=== PATIENT | male | born 1955 | race Caucasian/White ===

== ENCOUNTER 2022-12-21 10:41 | Inpatient (IN) | payer MEDICARE, MEDICAID, SELFPAY ==
[2022-12-21] VITALS (15 sets, daily range): BP systolic 107–157; BP diastolic 57–82; PULSE 70–87; RESP 16–20; TEMP 35.8–37.2; O2SAT 91–97; BMI 33.3; BMI 31.9
--- NOTE | 2022-12-21 | CA_ITS ---
FINAL REPORT TECHNIQUE: Graded compression, spectral analysis and ultrasound images of the venous system of the right upper extremity were obtained. CLINICAL HISTORY: red swollen arm, pt unable to raise or move. Pt unable to get out of room chair and be positioned. Poor hygiene. Pt intolerant to touch COMPARISON: none FINDINGS: The jugular vein, subclavian vein, axillary vein, brachial vein, and cephalic vein system are fully compressible and demonstrate no evidence of thrombosis. Basilic vein not imaged. IMPRESSION: Exam limited due to patient inability to tolerate. No evidence of thrombosis of the venous system of the right upper extremity. Reviewed, Interpreted and Dictated by Tawana Heard MD Transcribed by Kylah Wright Authenticated and [facility]
--- NOTE | 2022-12-21 10:53 | XR_ITS ---
FINAL REPORT CLINICAL HISTORY: pain right humerus-- no fall or injury-- does seem swollen and red down the arm -- also has a back issue with sciatica pain and unable to lay or stand -- had to do xrays portable FINDINGS: RIGHT HUMERUS 2 views of the right humeral were obtained. There is no acute fracture or dislocation. There is a calcification adjacent to the greater tuberosity. There could be calcification in the rotator cuff, calcific tendinitis is not excluded. There does appear to be soft tissue edema in the distal arm, cellulitis is not excluded.. IMPRESSION: No acute bony abnormality. Could be calcification in the rotator cuff, calcific tendinitis not excluded. Reviewed, Interpreted and Dictated by Tawana Heard MD Transcribed by Chela Alford Authenticated and [facility]
--- NOTE | 2022-12-21 11:03 | HMH.EDGENADL ---
Discharge Plan Disposition Patient Disposition: Admitted As Inpatient Condition: Fair Referrals Follow up/Referrals: Provider,MD Emanuel [Primary Care Provider] - See instructions Clinical Impressions Clinical Impression: Cellulitis Instructions Patient Instructions: DI for Skin Abscess Discharge ED Provider: Luis Hernandez General Adult HPI General Chief complaint: Skin/Abscess/Foreign Body Stated complaint: feet swollen, blood sugar high Time Seen by Provider: 12/21/22 10:46 History of Present Illness HPI narrative: Patient presents with a 2-week history of right shoulder and arm redness pain and swelling. He states is Grossly worse and describes the pain as severe and worse with movement. There is been no fever. He is seen previous providers and was referred here for further evaluation. He has not been on antibiotics thus far. He denies trauma to the arm. Related Data Allergies Allergy/AdvReac Type Severity Reaction Status Date / Time buspirone [From BuSpar] Allergy Verified 12/21/22 11:12 [facility] Disclaimer: The information contained in this section may have been updated after the patient was seen, as this information can be updated by other users. Social History Smoking Status: Never smoker alcohol intake: never current occupational status: unemployed Travel in the last 8 weeks: None ROS Obtained: Yes All systems reviewed & no additional complaints except as documented Physical Exam General General appearance: alert and in no apparent distress Head Head exam: atraumatic, normocephalic and normal inspection Eye Eye exam: Present normal appearance, PERRL and EOMI ENT ENT exam: Present normal exam, normal oropharynx, mucous membranes moist, TM's normal bilaterally and normal external ear exam Neck Neck exam: Present normal inspection, full ROM and trachea midline; Absent meningismus or lymphadenopathy Chest Chest inspection: Present normal inspection and symmetric chest wall rise; Absent tenderness Respiratory Respiratory exam: Present normal lung sounds bilaterally; Absent respiratory distress Cardiovascular Cardiovascular exam: Present regular rate and normal rhythm; Absent JVD Abdominal Exam Abdominal exam: Present soft and normal bowel sounds; Absent distention, tenderness or guarding Extremities Exam Extremities exam: Present other (To the right shoulder and medial aspect of the right arm there is erythema. The entire arm has some mild to moderate edema. There is tenderness to the shoulder and medial aspect of the right arm as well. There is no fluctuance or crepitance. There is no drainage.) Back Exam Back exam: Present normal inspection; Absent tenderness Neurological Exam Neurological exam: Present alert and oriented X3 Psychiatric Psychiatric exam: Present normal affect and normal mood Skin Skin exam: Present warm, dry, intact and normal color Lymphatic Lymphatic Findings: no adenopathy Medical Decision Making Danish Inquiry Pt receiving controlled substance: Yes Danish was queried for this patient: No Risks and benefits of using a controlled substance: were not discussed with pt by me Vital Signs: 12/21/22 10:43 12/21/22 11:30 12/21/22 12:14 Temperature 97.7 F Temperature Source Oral Pulse Rate 77 78 Pulse Rate [Left Radial] 81 Respiratory Rate 20 Blood Pressure 127/67 138/80 Blood Pressure [Right Arm] 151/74 H Blood Pressure Mean 93 99 Blood Pressure Mean [Right Arm] 99 Blood Pressure Source [Right Arm] Automatic Cuff Blood Pressure Position [Right Arm] Sitting 02 Sat by Pulse Oximetry 96 95 93 L Oxygen Delivery Method Room Air 12/21/22 12:15 12/21/22 12:30 12/21/22 13:00 Temperature Temperature Source Pulse Rate 78 82 79 Pulse Rate [Left Radial] Respiratory Rate Blood Pressure 135/69 107/58 L Blood Pressure [Right Arm] Blood Pressure Mean 90 74 Blood Pressu
[2022-12-21 11:25] LABS: Basophils # 0.1 K/mm3 (0-0.2); Basophils % 0.5 % (0.1-2.0); Eosinophils # 0.2 K/mm3 (0.0-0.4); Hematocrit 47.2 % (42.0-52.0); Hemoglobin 15.7 g/dL (14.1-18.0); Lymphocytes % 4.7 % (10-50); Mean Corpuscular HGB Conc 33.1 g/dL (31.8-35.4); Mean Corpuscular Hemoglobin 28.9 pg (27.0-31.2); Mean Corpuscular Volume 87.2 fl (80-94); Mean Platelet Volume 11.3 fl (7.4-10.4); Monocytes # 0.6 K/mm3 (0.1-1.0); Neutrophils # 19.3 K/mm3 (1.8-7.8); Neutrophils % 90.8 % (37.0-80.0); Platelet Count 247 K/mm3 (142-424); Red Blood Count 5.42 M/mm3 (4.60-6.20); Red Cell Distribution Width 13.4 % (11.5-17.5); White Blood Count 21.2 K/mm3 (4.8-10.8)
[2022-12-21 11:27] LABS: MANUAL DIFFERENTIAL MANUAL DIFFERENTIAL (MANUAL DIFF)
[2022-12-21 11:29] LABS: Chloride 92 mmol/L (98-107)
[2022-12-21 11:30] LABS: Potassium 5.1 mmoL/L (3.5-5.1); Sodium 127 mmol/L (136-145)
[2022-12-21 11:32] LABS: Alanine Aminotransferase 34 U/L (12-78); Alkaline Phosphatase 174 U/L (38-126); Anion Gap 9.1 mEq/L (5-15); Aspartate Amino Transferase 36 U/L (17-59); Bilirubin,Total 2.8 mg/dl (0.2-1.3); Blood Urea Nitrogen 31 mg/dl (9-20); Carbon Dioxide 31 mmol/L (22.0-30.0); Creatinine Clearance Estimated 101 mL/min (50-200); Estimated Glomerular Filt Rate 67 ml/min (>60); GFR (African American) 81 ML/MIN (>60)
[2022-12-21 11:33] LABS: Albumin Level 3.4 g/dl (3.5-5.0); Albumin/Globulin Ratio 0.9 (1.1-1.8); Calcium 8.5 mg/dl (8.4-10.2); Globulin 3.7 g/dL (1.3-3.2); Glucose 154 mg/dl (74-100); Lactic Acid 1.3 mmol/L (0.7-2.1); Total Protein,Serum 7.1 g/dl (6.3-8.2)
[2022-12-21 11:37] LABS: Lymphocytes % 5 % (10-50); Monocytes % 8 % (2-9); Neutrophils % 87 % (42-76); Platelet Estimate Normal; RBC Morphology Normal; Total Cells Counted 100
--- NOTE | 2022-12-21 13:03 | PC.NURSE ---
patient uncomfortable sitting in bed and requested that he be assisted to sitting in a chair. Patient assisted to chair, no further request at this time
--- NOTE | 2022-12-21 14:39 | PC.NURSE ---
ECHO LAB CALLED
[2022-12-21 14:49] LABS: Coronavirus 19, PCR Not Detected (NotDetected); Influenza A, PCR Not Detected (NotDetected); Influenza B, PCR Not Detected (NotDetected)
--- NOTE | 2022-12-21 15:08 | PC.NURSE ---
PRELIM OF DOPPLER NEGATIVE FOR DVT
--- NOTE | 2022-12-21 15:10 | PC.NURSE ---
CARE MANAGEMENT NOTIFIED OF ADMISSION
--- NOTE | 2022-12-21 15:12 | HMH.PHAINT1 ---
Pharmacy Intervention Comments: Medication reconciliation completed using external fill history
--- NOTE | 2022-12-21 15:12 | PC.NURSE ---
ROOM ASSIGNMENT REQUESTED, ROOM 211. ALL STAFF NOTIFIED
--- NOTE | 2022-12-21 15:59 | EXP.HP ---
History of Present Illness *Admission Date: 12/21/22 *Reason for visit:: Right upper extremity swelling and pain *History of present illness: 67-year-old gentleman with 2-week history of right shoulder and arm redness and pain. States his right shoulder is where the pain began approximately 2 weeks ago. He was at a friend's house in [place] and woke up with pain. Denies any trauma or injury. Pain is gradually progressed and includes swelling of his right arm. Significant edema (3+) in right upper extremity and hand. Pain was bad enough that he went to see since he Ortho last week on the . They told him (per his friends in the room) that he either had an infection or gout. They gave him a steroid shot and sent him home. His symptoms have only gotten worse with pain. He has not slept well due to the pain. Is dozing in and out on exam at this time. Denies any chest pain, shortness of breath, nausea, vomiting, fever or chills. He does complain of being quite fatigued and just wanting to sleep. Friends in the room supplement history and state that he has gotten worse over the past several days and has not wanted to do much, has had swelling in his legs as previously not there, and has become very weak and tired. They brought him to the ER at the recommendation of his PCP. On arrival to the ER, concern for right upper extremity cellulitis or infection. Initiated work-up with CBC and CMP. Patient's BUN is elevated at 31 with normal creatinine 1.1. He additionally has elevated white cell count of 20,000. X-ray of the humerus shows no fracture or injury. Duplex of upper extremity showing no DVT. Medicine consulted for admission and further management. [facility] Disclaimer: The information contained in this section may have been updated after the patient was seen, as this information can be updated by other users. Medical History (Updated 12/21/22 @ 17:31 by Александр Glez MD) Atrial fibrillation Chronic anticoagulation Diabetes Essential hypertension Social History Smoking Status: Never smoker alcohol intake: never current occupational status: unemployed Travel in the last 8 weeks: None Review of Systems Review of Systems Review of systems (narrative): 14 point review of systems performed, pertinent positives and negatives as per HPI Meds Home Medications and Allergies Home Medications Medication Instructions Recorded Confirmed Type apixaban 5 mg tablet (Eliquis) 5 mg PO BID Blood thinner 12/21/22 12/21/22 History atorvastatin 80 mg tablet 80 mg PO DAILY Cholesterol 12/21/22 12/21/22 History clopidogrel 75 mg tablet 75 mg PO DAILY Blood thinner 12/21/22 12/21/22 History duloxetine 30 mg capsule,delayed 60 mg PO DAILY mood 12/21/22 12/21/22 History release empagliflozin 25 mg tablet 25 mg PO DAILY Diabetes 12/21/22 12/21/22 History (Jardiance) fluticasone propionate 50 1 spray intranasal DAILY allergies 12/21/22 12/21/22 History mcg/actuation nasal spray,suspension glipizide 10 mg tablet, extended 10 mg PO DAILY Diabetes 12/21/22 12/21/22 History release 24 hr metformin 1,000 mg tablet 1,000 mg PO BID Diabetes 12/21/22 12/21/22 History metoprolol tartrate 25 mg tablet 25 mg PO DAILY High blood pressure 12/21/22 12/21/22 History pantoprazole 40 mg tablet,delayed 40 mg PO DAILY acid reflux 12/21/22 12/21/22 History release New Prescriptions to Start Prescriptions: Allergies Allergy/AdvReac Type Severity Reaction Status Date / Time buspirone [From BuSpar] Allergy Verified 12/21/22 11:12 Exam Data for Last 24 hours Vital signs and Labs for Last 24 Hours: Temp Pulse Resp BP Pulse Ox 97.7 F 87 20 126/80 96 12/21/22 15:47 12/21/22 15:47 12/21/22 15:47 12/21/22 15:47 12/21/22 15:30 Laboratory Results - last 24 hr 12/21/22 11:05: WBC 21.2 H*, RBC 5.42, Hgb 15.7, Hct 47.2, MCV 87.2, MCH 28.9, MCHC 3
--- NOTE | 2022-12-21 16:09 | PC.NURSE ---
report called to hira tipton
--- NOTE | 2022-12-21 16:20 | PC.NURSE ---
arrived by w/c to floor from ED
[2022-12-21 17:05] LABS: ABG Base Excess 1.9 mmol/L (-2.4-2.3); ABG HCO3 26.1 mmhg (22.0-26.0); ABG Oxygen Saturation 91 % (90-100); ABG PCO2 39.7 mmhg (35.0-45.0); ABG PH 7.44 mmol/L (7.35-7.45); ABG PO2 58.9 mmhg (80-100); ABG TCO2 27.3 mmhg (23-27)
[2022-12-21 17:06] LABS: Allen's Test Acceptable; Oxygen 21 %; Source Right Radial
--- NOTE | 2022-12-21 17:10 | HMH.ITSTN ---
called floor and advised we tried to do shoulder on patient while in ER- he could not lay flat or get in position for scan. Nurse will speak to Dr Glez and call back
[2022-12-21 18:23] LABS: NT Pro Brain Natriuretic Pep. 1020 pg/mL (0-125)
[2022-12-21 18:28] LABS: Troponin I 0.18 ng/ml (0.00-0.034)
[2022-12-21 18:33] LABS: C-Reactive Protein 321.3 mg/L (0-4)
--- NOTE | 2022-12-21 18:38 | PC.NURSE ---
Addendum entered by Linn Morel RN 12/21/22 18:45: diamond ramires, hold lasix for now, admin in a couple of hrs after 500ml bolus. Original Note: pt alert x3. pt came to floor very drowsy. bed alarm on for pt safety. crackles heard t/o angie lungs. rt shoulder and rue reddness in spots, rt arm swollen, hand +3 pitting edema. pt rt arm very tende to touch, pt refuses to lift arm or lay down as pt states pain is unbearable. 2l o2 per nc. pt states he is having pain to the rt arm 10/10 and lt buttocks just from sitting the past 2 weeks as pt has been unable to lay flat or on side to sleep. no skin issues to lt buttocks. cb within reach and personal items. pt knows not to get up without assistance.
--- NOTE | 2022-12-21 19:21 | ECG_ITS ---
APPROVED REPORT Exam: Resting ECG HR:71 bpm ECG Measurements Heart Rate 71 AXES NE 170 P 55 QRSd 152 QRS -79 QT 414 T 0 QTc 437 Conclusion SINUS RHYTHM RIGHT BUNDLE BRANCH BLOCK [120+ ms QRS DURATION, UPRIGHT V1, 40+ ms S IN I/aVL/V4/V5/V6] LEFT ANTERIOR FASCICULAR BLOCK [QRS AXIS <= -45, QR IN I, RS IN II] MODERATE T-WAVE ABNORMALITY, CONSIDER LATERAL ISCHEMIA [-0.1+ mV T-WAVE IN I/aVL/V5/V6] ABNORMAL ECG UNCONFIRMED REPORT Electronically signed by : Gaurang Rojas MD 12/22/2022 20:30:13
[2022-12-21 19:28] LABS: POC Glucose,Bedside 230 (70-110)
[2022-12-21 19:31] LABS: Chloride 94 mmol/L (98-107); Potassium 4.9 mmoL/L (3.5-5.1); Sodium 126 mmol/L (136-145)
[2022-12-21 19:34] LABS: Blood Urea Nitrogen 36 mg/dl (9-20); Creatinine Clearance Estimated 97 mL/min (50-200); Estimated Glomerular Filt Rate 67 ml/min (>60); GFR (African American) 81 ML/MIN (>60)
[2022-12-21 19:35] LABS: Anion Gap 7.9 mEq/L (5-15); Carbon Dioxide 29 mmol/L (22.0-30.0); Glucose 152 mg/dl (74-100); INR 1.42 (0.9-1.1)
[2022-12-21 19:40] LABS: C-Reactive Protein 298.6 mg/L (0-4)
[2022-12-21 19:49] LABS: Troponin I 0.14 ng/ml (0.00-0.034)
[2022-12-21 20:00] LABS: Erythrocyte Sedimentation Rate 26 mm/hr (0-20)
--- NOTE | 2022-12-21 20:13 | EXP.ORTH.CON ---
History of Present Illness *Admission Date: 12/21/22 *History of present illness: 67-year-old gentleman with 2-week history of right shoulder and arm redness and pain. States his right shoulder is where the pain began approximately 2 weeks ago. He was at a friend's house in [place] and woke up with pain. Denies any trauma or injury. Pain is gradually progressed and includes swelling of his right arm. Significant edema (3+) in right upper extremity and hand. Pain was bad enough that he went to see since he Ortho last week on the . They told him (per his friends in the room) that he either had an infection or gout. They gave him a steroid shot and sent him home. His symptoms have only gotten worse with pain. He has not slept well due to the pain. Is dozing in and out on exam at this time. Denies any chest pain, shortness of breath, nausea, vomiting, fever or chills. He does complain of being quite fatigued and just wanting to sleep. Friends in the room supplement history and state that he has gotten worse over the past several days and has not wanted to do much, has had swelling in his legs as previously not there, and has become very weak and tired. They brought him to the ER at the recommendation of his PCP. On arrival to the ER, concern for right upper extremity cellulitis or infection. Initiated work-up with CBC and CMP. Patient's BUN is elevated at 31 with normal creatinine 1.1. He additionally has elevated white cell count of 20,000. X-ray of the humerus shows no fracture or injury. Duplex of upper extremity showing no DVT. Medicine consulted for admission and further management. [facility] Disclaimer: The information contained in this section may have been updated after the patient was seen, as this information can be updated by other users. Medical History (Updated 12/21/22 @ 20:17 by Missael Flynn JR, MD) Atrial fibrillation Chronic anticoagulation Diabetes Essential hypertension Family History (Updated 12/21/22 @ 18:30 by Linn Morel RN) Other No significant family history Social History (Updated 12/21/22 @ 18:30 by Linn Morel RN) Smoking Status: Never smoker alcohol intake: never current occupational status: unemployed Travel in the last 8 weeks: None Meds Home Medications and Allergies Home Medications Medication Instructions Recorded Confirmed Type apixaban 5 mg tablet (Eliquis) 5 mg PO BID Blood thinner 12/21/22 12/21/22 History atorvastatin 80 mg tablet 80 mg PO DAILY Cholesterol 12/21/22 12/21/22 History clopidogrel 75 mg tablet 75 mg PO DAILY Blood thinner 12/21/22 12/21/22 History duloxetine 30 mg capsule,delayed 60 mg PO DAILY mood 12/21/22 12/21/22 History release empagliflozin 25 mg tablet 25 mg PO DAILY Diabetes 12/21/22 12/21/22 History (Jardiance) fluticasone propionate 50 1 spray intranasal DAILY allergies 12/21/22 12/21/22 History mcg/actuation nasal spray,suspension glipizide 10 mg tablet, extended 10 mg PO DAILY Diabetes 12/21/22 12/21/22 History release 24 hr metformin 1,000 mg tablet 1,000 mg PO BID Diabetes 12/21/22 12/21/22 History metoprolol tartrate 25 mg tablet 25 mg PO DAILY High blood pressure 12/21/22 12/21/22 History pantoprazole 40 mg tablet,delayed 40 mg PO DAILY acid reflux 12/21/22 12/21/22 History release New Prescriptions to Start Prescriptions: Allergies Allergy/AdvReac Type Severity Reaction Status Date / Time buspirone [From BuSpar] Allergy Verified 12/21/22 11:12 Ortho Exam (Inpt) Vital signs and Labs for Last 24 Hours: Temp Pulse Resp BP Pulse Ox 96.4 F L 72 16 138/70 95 12/21/22 20:00 12/21/22 20:00 12/21/22 20:00 12/21/22 20:00 12/21/22 20:00 Laboratory Results - last 24 hr 12/21/22 11:05: WBC 21.2 H*, RBC 5.42, Hgb 15.7, Hct 47.2, MCV 87.2, MCH 28.9, MCHC 33.1, RDW 13.4, Plt Count 247, MPV 11.3 H, Neut % (Auto) 90.8 H, Lymph % (Auto) 4.7 L, [place] % (Auto) 3.0, Eos % (Auto
[2022-12-21 20:47] LABS: POC Glucose,Bedside 123 (70-110)
[2022-12-22] VITALS (8 sets, daily range): BP systolic 123–186; BP diastolic 63–80; PULSE 70–97; RESP 16–20; TEMP 36.4–36.9; O2SAT 96–99; BMI 31.8; BMI 31.6
[2022-12-22 05:28] LABS: POC Glucose,Bedside 98 (70-110)
--- NOTE | 2022-12-22 06:27 | PC.NURSE ---
NO ACUTE CHANGES SINCE PREVIOUS ASSESSMENT. PT HAS NOT SLEPT MUCH THIS SHIFT. HAS C/O PAIN IN HIS RIGHT SHOULDER X1 THIS SHIFT. C/O NAUSEA X1 THIS SHIFT. MEDICATED PER DEC. REMAINS ON 2L AND IS TOLERATING WELL. PT HAS HAD A BUNDLE BRANCH BLOCK ON TELE. VSS. RUE REMAINS SWOLLEN WITH +2 TO +3 EDEMA. C/O PAIN WITH TOUCH.
[2022-12-22 06:42] LABS: Basophils # 0.1 K/mm3 (0-0.2); Basophils % 0.3 % (0.1-2.0); Eosinophils # 0.2 K/mm3 (0.0-0.4); Hemoglobin 15.6 g/dL (14.1-18.0); Lymphocytes % 4.6 % (10-50); Mean Corpuscular HGB Conc 32.5 g/dL (31.8-35.4); Mean Corpuscular Hemoglobin 28.9 pg (27.0-31.2); Mean Corpuscular Volume 89.2 fl (80-94); Mean Platelet Volume 11.3 fl (7.4-10.4); Monocytes # 0.8 K/mm3 (0.1-1.0); Monocytes % 3.9 % (1.7-9.3); Neutrophils # 19.3 K/mm3 (1.8-7.8); Neutrophils % 90.2 % (37.0-80.0); Platelet Count 226 K/mm3 (142-424); Red Blood Count 5.39 M/mm3 (4.60-6.20); Red Cell Distribution Width 13.3 % (11.5-17.5); White Blood Count 21.4 K/mm3 (4.8-10.8)
[2022-12-22 06:48] LABS: MANUAL DIFFERENTIAL MANUAL DIFFERENTIAL (MANUAL DIFF)
[2022-12-22 07:23] LABS: Chloride 96 mmol/L (98-107); Sodium 127 mmol/L (136-145)
[2022-12-22 07:24] LABS: Potassium 5.3 mmoL/L (3.5-5.1)
[2022-12-22 07:26] LABS: Alanine Aminotransferase 23 U/L (12-78); Albumin Level 2.5 g/dl (3.5-5.0); Albumin/Globulin Ratio 0.9 (1.1-1.8); Alkaline Phosphatase 168 U/L (38-126); Anion Gap 13.3 mEq/L (5-15); Aspartate Amino Transferase 45 U/L (17-59); Bilirubin,Total 1.7 mg/dl (0.2-1.3); Blood Urea Nitrogen 31 mg/dl (9-20); Calcium 7.8 mg/dl (8.4-10.2); Carbon Dioxide 23 mmol/L (22.0-30.0); Creatinine Clearance Estimated 107 mL/min (50-200); Estimated Glomerular Filt Rate 84 ml/min (>60); GFR (African American) 102 ML/MIN (>60); Globulin 2.9 g/dL (1.3-3.2); Glucose 116 mg/dl (74-100); Total Protein,Serum 5.4 g/dl (6.3-8.2)
[2022-12-22 07:27] LABS: Lymphocytes % 7 % (10-50); Magnesium 2.8 mg/dl (1.6-2.3); Monocytes % 5 % (2-9); Neutrophils % 88 % (42-76); Platelet Estimate Normal; RBC Morphology Normal; Total Cells Counted 100
[2022-12-22 07:32] LABS: C-Reactive Protein 293.8 mg/L (0-4)
[2022-12-22 07:54] LABS: Erythrocyte Sedimentation Rate 13 mm/hr (0-20)
--- NOTE | 2022-12-22 09:05 | MR_ITS ---
FINAL REPORT TECHNIQUE: Multiplanar MR imaging of the right shoulder was obtained with and without contrast. CLINICAL HISTORY: RIGHT SHOULDER PAIN redness , swelling , extreme pain x 15 days FINDINGS: Bones and joints: There is no fracture or dislocation. There is bone marrow edema of the acromion and AC joint. The AC joint is widened but there is no elevation of the distal clavicle. The remaining bone marrow signal intensity is normal. Rotator cuff: There is a full-thickness tear of the posterior supraspinatus tendon at the footplate. The infraspinatus and subscapularis tendons are intact. Labrum: There is degeneration of the labrum without evidence of a tear. Other: There is a large joint effusion. There is significant edema of the deltoid muscle including portions of the lateral trapezius muscle, lateral pectoralis muscle and to a lesser extent the rotator cuff muscles. There is a peripherally enhancing fluid collection in the subdeltoid space which extends into the soft tissues superior to the AC joint and anteriorly and inferiorly along the lateral pectoralis and axilla. There is enhancement of the joint capsule. The anterior collection extends at least 10 cm in craniocaudal dimension. Posteriorly, it extends 7 cm in craniocaudal dimension concerning for possible abscess. There is extensive soft tissue edema. There are mildly prominent right axillary lymph nodes. IMPRESSION: Significant abnormal signal intensity within the muscles surrounding the right shoulder and along the lateral right chest wall concerning for myositis and cellulitis. Peripherally enhancing collection dissecting through the soft tissues, abscess is a consideration. Edema of the AC joint with widening, septic arthritis is not excluded. Full-thickness tear of the posterior supraspinatus tendon. Reviewed, Interpreted and Dictated by Tawana Heard MD Transcribed by Pearl Faria Authenticated and [facility]
--- NOTE | 2022-12-22 09:27 | XR_ITS ---
FINAL REPORT CLINICAL HISTORY: R/O FB FINDINGS: ORBITS Two views of the orbits was obtained prior to MRI. No foreign body is identified. IMPRESSION: No foreign body identified. Reviewed, Interpreted and Dictated by Tawana Heard MD Transcribed by Lorraine Mendoza Authenticated and [facility]
--- NOTE | 2022-12-22 09:28 | EXP.ORTH.PN ---
Subjective *Date: 12/22/22 *Time: 09:34 Interval history: Patient is a 67-year-old male admitted to the acute inpatient service with a 2-week history of right shoulder and arm erythema, pain. This morning the patient is lying comfortably in bed. He denies any prior trauma, injury, or surgeries to the right shoulder. He states that he was seen by Johanne Avalos on 12/15/2022 and had a local steroid injection at that time. He states that his symptoms have continued to progress. No history of any fevers, but the patient reports subjective feeling of chills. His past medical history is significant for diabetes, hypertension, atrial fibrillation on chronic anticoagulation with Eliquis. His last dose of Eliquis was the morning of 12/21/2022 he denies any other symptoms or concerns at this time. Ortho Exam (Inpt) Vital signs and Labs for Last 24 Hours: Temp Pulse Resp BP Pulse Ox 97.9 F 86 20 161/69 H 99 12/22/22 08:00 12/22/22 08:00 12/22/22 08:00 12/22/22 08:00 12/22/22 08:00 Laboratory Results - last 24 hr 12/21/22 11:05: WBC 21.2 H*, RBC 5.42, Hgb 15.7, Hct 47.2, MCV 87.2, MCH 28.9, MCHC 33.1, RDW 13.4, Plt Count 247, MPV 11.3 H, Neut % (Auto) 90.8 H, Lymph % (Auto) 4.7 L, Leon % (Auto) 3.0, Eos % (Auto) 1.0, Baso % (Auto) 0.5, Neut # (Auto) 19.3 H, Lymph # (Auto) 1.0, Leon # (Auto) 0.6, Eos # (Auto) 0.2, Baso # (Auto) 0.1, Total Counted 100, Neutrophils % (Manual) 87 H, Lymphocytes % (Manual) 5 L, Monocytes % (Manual) 8, Platelet Estimate Normal, RBC Morphology Normal 12/21/22 11:05: Sodium 127 L, Potassium 5.1, Chloride 92 L, Carbon Dioxide 31 H, Anion Gap 9.1, BUN 31 H, Creatinine 1.10, Estimated Creat Clear 101, Estimated GFR 67, Est GFR ( Amer) 81, Glucose 154 H, Calcium 8.5, Total Bilirubin 2.8 H, AST 36, ALT 34, Alkaline Phosphatase 174 H, Total Protein 7.1, Albumin 3.4 L, Globulin 3.7 H, Albumin/Globulin Ratio 0.9 L 12/21/22 11:05: Lactate 1.3 12/21/22 11:05: Hemoglobin A1c 9.0 H 12/21/22 11:05: Uric Acid 7.0 12/21/22 11:05: Troponin I 0.18 H, C-Reactive Protein 321.3 H, NT-Pro-B Natriuret Pep 1020 H 12/21/22 14:40: SARS-CoV-2 (PCR) Not detected, Influenza A Untype (PCR) Not detected, Influenza Type B (PCR) Not detected 12/21/22 16:34: POC Glucose 230 H 12/21/22 16:48: Specimen Source Right radial, O2 % 21, ABG pH 7.44, ABG pCO2 39.7, ABG pO2 58.9 L, ABG HCO3 26.1 H, ABG Total CO2 27.3 H, ABG O2 Saturation 91, ABG Base Excess 1.9, Christian Test Acceptable 12/21/22 18:49: Sodium 126 L, Potassium 4.9, Chloride 94 L, Carbon Dioxide 29, Anion Gap 7.9, BUN 36 H, Creatinine 1.10, Estimated Creat Clear 97, Estimated GFR 67, Est GFR ( Amer) 81, Glucose 152 H, Calcium 8.0 L, Troponin I 0.14 H, C-Reactive Protein 298.6 H 12/21/22 18:49: PT 15.0 H, INR 1.42 H 12/21/22 18:49: ESR 26 H 12/21/22 20:32: POC Glucose 123 H 12/22/22 05:20: POC Glucose 98 12/22/22 06:05: WBC 21.4 H*, RBC 5.39, Hgb 15.6, Hct 48.0, MCV 89.2, MCH 28.9, MCHC 32.5, RDW 13.3, Plt Count 226, MPV 11.3 H, Neut % (Auto) 90.2 H, Lymph % (Auto) 4.6 L, Leon % (Auto) 3.9, Eos % (Auto) 1.0, Baso % (Auto) 0.3, Neut # (Auto) 19.3 H, Lymph # (Auto) 1.0, Leon # (Auto) 0.8, Eos # (Auto) 0.2, Baso # (Auto) 0.1, Total Counted 100, Neutrophils % (Manual) 88 H, Lymphocytes % (Manual) 7 L, Monocytes % (Manual) 5, Platelet Estimate Normal, RBC Morphology Normal, ESR 13 12/22/22 06:05: Sodium 127 L, Potassium 5.3 H, Chloride 96 L, Carbon Dioxide 23, Anion Gap 13.3, BUN 31 H, Creatinine 0.90, Estimated Creat Clear 107, Estimated GFR 84, Est GFR ( Amer) 102 D, Glucose 116 H D, Calcium 7.8 L, Magnesium 2.8 H, Total Bilirubin 1.7 H, AST 45, ALT 23 D, Alkaline Phosphatase 168 H, C-Reactive Protein 293.8 H, Total Protein 5.4 L, Albumin 2.5 L D, Globulin 2.9, Albumin/Globulin Ratio 0.9 L I & O for Labs for Last 24 Hours: Intake & Output 12/19/22 12/20/22 12/21/22 12/22/22 23:59 23:59 23:59 23:59 Intake Total 240 / 240 240 / 240 Output Total 1150 / 1150 Balance 240 / 40 -910 / -9
--- NOTE | 2022-12-22 10:06 | EXP.CARD.CON ---
History of Present Illness History of Present Illness Consult date: 12/22/22 Requesting physician: Александр Glez Chief complaint: right shoulder pain History of present illness: This is a 67-year-old white gentleman who presented to the emergency department for complaint of a 2-week history of right shoulder and arm pain and redness. The patient states that approximately 2 weeks ago he had sudden onset of redness in his right shoulder with pain. He states that he was in [place] visiting a friend when he woke up with this pain and redness. He states that it progressively worsened and included swelling in the right upper extremity. His edema is around 3+ in the extremity and hand. He went to [facility] last week and was told he either had an infection or gout. He was treated with a steroid shot and sent home. The patient's symptoms continue to worsen so he was brought to the emergency department. The patient was found to have a right upper extremity cellulitis or infection with an elevated white blood cell count. The patient does have a bacteremia which is positive for staph in the right shoulder. The patient is scheduled to undergo an MRI today per orthopedics. He denies any chest pain or pressure. He denies any shortness of breath. He does also report having generalized edema for the last 2 weeks as well. He states his legs have been significantly edematous but are better today. He denies any nausea, vomiting, diarrhea, PND or orthopnea. He denies having any fever or chills currently as well. He does have a history of coronary artery disease, hypertension and hyperlipidemia. The patient follows with Dr. Owen in [place] for cardiology. [facility] Disclaimer: The information contained in this section may have been updated after the patient was seen, as this information can be updated by other users. Medical History (Updated 12/22/22 @ 10:14 by Kami Hogue APRN) Atrial fibrillation Chronic anticoagulation Coronary artery disease Diabetes Edema Essential hypertension Hyperlipidemia Surgical History (Updated 12/22/22 @ 10:09 by Kami Hogue APRN) Stented coronary artery Family History (Updated 12/21/22 @ 18:30 by Linn Morel RN) Other No significant family history Social History (Updated 12/21/22 @ 18:30 by Linn Morel RN) Smoking Status: Never smoker alcohol intake: never current occupational status: unemployed Travel in the last 8 weeks: None Review of Systems Review of Systems Review of systems:: pertinent systems reviewed and negative unless documented below Constitutional Constitutional: Reports system reviewed and no additional complaints, except as documented Eyes Eyes: Reports system reviewed and no additional complaints, except as documented ENT Ears, Nose, Mouth, and Throat: Reports system reviewed and no additional complaints, except as documented *Cardiovascular Cardiovascular: Reports system reviewed and no additional complaints, except as documented, Denies chest pain, Denies dyspnea and Reports leg edema *Respiratory Respiratory: Reports system reviewed and no additional complaints, except as documented and Denies dyspnea *Gastrointestinal Gastrointestinal: Reports system reviewed and no additional complaints, except as documented *Genitourinary Genitourinary: Reports system reviewed and no additional complaints, except as documented *Musculoskeletal Musculoskeletal: Reports system reviewed and no additional complaints, except as documented, Reports arthralgias (Right shoulder joint pain), Reports joint swelling, Reports limited range of motion and Reports stiffness Comments: Pain, redness and swelling to the right shoulder and arm Integumentary/Breasts Skin/Breast: Reports system reviewed and no additional complaints, except as documented *Neurologic Neurologic: Reports system reviewed and no additional complaints, except as documented Psychiatric Psychiatric: Reports sys
--- NOTE | 2022-12-22 10:34 | EXP.PHA.CONS ---
Pharmacy Consult Date: 12/22/22 Time: 10:34 Referring provider: DR. MALCOLM Reason for Consult:: VANCOMYCIN DOSING Allergies Allergy/AdvReac Type Severity Reaction Status Date / Time buspirone [From BuSpar] Allergy Verified 12/21/22 11:12 Home Medications Medication Instructions Recorded Confirmed Type apixaban 5 mg tablet (Eliquis) 5 mg PO BID Blood thinner/atrial 12/21/22 12/21/22 History fib atorvastatin 80 mg tablet 80 mg PO DAILY Cholesterol 12/21/22 12/21/22 History clopidogrel 75 mg tablet 75 mg PO DAILY platelet inhibitor 12/21/22 12/21/22 History duloxetine 30 mg capsule,delayed 60 mg PO DAILY Depression 12/21/22 12/21/22 History release empagliflozin 25 mg tablet 25 mg PO DAILY Diabetes 12/21/22 12/21/22 History (Jardiance) fluticasone propionate 50 1 spray intranasal DAILY allergies 12/21/22 12/21/22 History mcg/actuation nasal spray,suspension glipizide 10 mg tablet, extended 10 mg PO DAILY Diabetes 12/21/22 12/21/22 History release 24 hr metformin 1,000 mg tablet 1,000 mg PO BID Diabetes 12/21/22 12/21/22 History metoprolol tartrate 25 mg tablet 25 mg PO BID High blood pressure 12/21/22 12/22/22 History pantoprazole 40 mg tablet,delayed 40 mg PO DAILY acid reflux 12/21/22 12/21/22 History release New Prescriptions to Start Prescriptions: Height: 1.83 m Weight: 106 kg Laboratory Results:: Laboratory Results - last 24 hr 12/21/22 11:05: WBC 21.2 H*, RBC 5.42, Hgb 15.7, Hct 47.2, MCV 87.2, MCH 28.9, MCHC 33.1, RDW 13.4, Plt Count 247, MPV 11.3 H, Neut % (Auto) 90.8 H, Lymph % (Auto) 4.7 L, [place] % (Auto) 3.0, Eos % (Auto) 1.0, Baso % (Auto) 0.5, Neut # (Auto) 19.3 H, Lymph # (Auto) 1.0, [place] # (Auto) 0.6, Eos # (Auto) 0.2, Baso # (Auto) 0.1, Total Counted 100, Neutrophils % (Manual) 87 H, Lymphocytes % (Manual) 5 L, Monocytes % (Manual) 8, Platelet Estimate Normal, RBC Morphology Normal 12/21/22 11:05: Sodium 127 L, Potassium 5.1, Chloride 92 L, Carbon Dioxide 31 H, Anion Gap 9.1, BUN 31 H, Creatinine 1.10, Estimated Creat Clear 101, Estimated GFR 67, Est GFR ( Amer) 81, Glucose 154 H, Calcium 8.5, Total Bilirubin 2.8 H, AST 36, ALT 34, Alkaline Phosphatase 174 H, Total Protein 7.1, Albumin 3.4 L, Globulin 3.7 H, Albumin/Globulin Ratio 0.9 L 12/21/22 11:05: Lactate 1.3 12/21/22 11:05: Hemoglobin A1c 9.0 H 12/21/22 11:05: Uric Acid 7.0 12/21/22 11:05: Troponin I 0.18 H, C-Reactive Protein 321.3 H, NT-Pro-B Natriuret Pep 1020 H 12/21/22 14:40: SARS-CoV-2 (PCR) Not detected, Influenza A Untype (PCR) Not detected, Influenza Type B (PCR) Not detected 12/21/22 16:34: POC Glucose 230 H 12/21/22 16:48: Specimen Source Right radial, O2 % 21, ABG pH 7.44, ABG pCO2 39.7, ABG pO2 58.9 L, ABG HCO3 26.1 H, ABG Total CO2 27.3 H, ABG O2 Saturation 91, ABG Base Excess 1.9, Christian Test Acceptable 12/21/22 18:49: Sodium 126 L, Potassium 4.9, Chloride 94 L, Carbon Dioxide 29, Anion Gap 7.9, BUN 36 H, Creatinine 1.10, Estimated Creat Clear 97, Estimated GFR 67, Est GFR ( Amer) 81, Glucose 152 H, Calcium 8.0 L, Troponin I 0.14 H, C-Reactive Protein 298.6 H 12/21/22 18:49: PT 15.0 H, INR 1.42 H 12/21/22 18:49: ESR 26 H 12/21/22 20:32: POC Glucose 123 H 12/22/22 05:20: POC Glucose 98 12/22/22 06:05: WBC 21.4 H*, RBC 5.39, Hgb 15.6, Hct 48.0, MCV 89.2, MCH 28.9, MCHC 32.5, RDW 13.3, Plt Count 226, MPV 11.3 H, Neut % (Auto) 90.2 H, Lymph % (Auto) 4.6 L, [place] % (Auto) 3.9, Eos % (Auto) 1.0, Baso % (Auto) 0.3, Neut # (Auto) 19.3 H, Lymph # (Auto) 1.0, [place] # (Auto) 0.8, Eos # (Auto) 0.2, Baso # (Auto) 0.1, Total Counted 100, Neutrophils % (Manual) 88 H, Lymphocytes % (Manual) 7 L, Monocytes % (Manual) 5, Platelet Estimate Normal, RBC Morphology Normal, ESR 13 12/22/22 06:05: Sodium 127 L, Potassium 5.3 H, Chloride 96 L, Carbon Dioxide 23, Anion Gap 13.3, BUN 31 H, Creatinine 0.90, Estimated Creat Clear 107, Estimated GFR 84, Est GFR ( Amer) 102 D, Glucose 116 H D, Calcium 7.8 L, Magnesium 2.8 H, Total Bilirubin
[2022-12-22 12:15] LABS: POC Glucose,Bedside 143 (70-110)
--- NOTE | 2022-12-22 12:48 | EXP.ACUTE.PN ---
Subjective *Date: 12/22/22 *Time: 15:26 Interval history: Patient feeling little bit better today, no fever. No nausea or vomiting. Pain still prominent and affecting his comfort and movement in right shoulder. No acute events overnight. Blood cultures returned positive, continuing IV antibiotics. Ortho seeing him this morning. Pain stable on IV Dilaudid however only holding it for about an hour, would like to transition to longer acting pain control. Medical Exam Vital signs and Labs for Last 24 Hours: Vital Signs Temp Pulse Pulse Resp BP BP Pulse Ox 12/22/22 11:39 97.5 F L 97 H 16 123/65 97 12/22/22 08:00 97.9 F 86 20 161/69 H 99 12/22/22 08:17 90 12/22/22 08:00 97.9 F 86 20 161/69 H 99 12/22/22 06:00 80 12/22/22 00:00 70 12/21/22 20:00 70 12/22/22 03:58 98.2 F 85 16 145/63 H 96 12/21/22 20:00 96.4 F L 72 16 138/70 95 12/21/22 16:33 98.9 F 87 17 157/82 H 93 L 12/21/22 15:47 97.7 F 87 20 126/80 12/21/22 15:30 83 96 12/21/22 15:15 83 96 12/21/22 15:00 87 97 12/21/22 14:30 79 113/57 L 94 L 12/21/22 14:00 77 18 118/70 94 L 12/21/22 13:30 79 132/66 95 12/21/22 13:00 79 107/58 L 96 Intake and Output 12/21/22 12/22/22 12/22/22 23:59 07:59 15:59 Intake Total 240 / 240 240 / 240 Output Total 1150 / 1150 0 / 1150 Balance 240 / 40 -1150 / -910 240 / -910 Intake: Intake, Oral Amount 240 / 240 240 / 240 Output: Output, Urine Amount 1150 / 1150 0 / 1150 Other: Number of Voids 0 Number of Unmeasured Voids 1 Weight 106.764 kg 106.503 kg 106 kg Patient Weight 12/22/22 23:59 Weight 106 kg Laboratory Results - last 24 hr 12/21/22 11:05: Hemoglobin A1c 9.0 H 12/21/22 11:05: Uric Acid 7.0 12/21/22 11:05: Troponin I 0.18 H, C-Reactive Protein 321.3 H, NT-Pro-B Natriuret Pep 1020 H 12/21/22 14:40: SARS-CoV-2 (PCR) Not detected, Influenza A Untype (PCR) Not detected, Influenza Type B (PCR) Not detected 12/21/22 16:34: POC Glucose 230 H 12/21/22 16:48: Specimen Source Right radial, O2 % 21, ABG pH 7.44, ABG pCO2 39.7, ABG pO2 58.9 L, ABG HCO3 26.1 H, ABG Total CO2 27.3 H, ABG O2 Saturation 91, ABG Base Excess 1.9, Christian Test Acceptable 12/21/22 18:49: Sodium 126 L, Potassium 4.9, Chloride 94 L, Carbon Dioxide 29, Anion Gap 7.9, BUN 36 H, Creatinine 1.10, Estimated Creat Clear 97, Estimated GFR 67, Est GFR ( Amer) 81, Glucose 152 H, Calcium 8.0 L, Troponin I 0.14 H, C-Reactive Protein 298.6 H 12/21/22 18:49: PT 15.0 H, INR 1.42 H 12/21/22 18:49: ESR 26 H 12/21/22 20:32: POC Glucose 123 H 12/22/22 05:20: POC Glucose 98 12/22/22 06:05: WBC 21.4 H*, RBC 5.39, Hgb 15.6, Hct 48.0, MCV 89.2, MCH 28.9, MCHC 32.5, RDW 13.3, Plt Count 226, MPV 11.3 H, Neut % (Auto) 90.2 H, Lymph % (Auto) 4.6 L, [place] % (Auto) 3.9, Eos % (Auto) 1.0, Baso % (Auto) 0.3, Neut # (Auto) 19.3 H, Lymph # (Auto) 1.0, [place] # (Auto) 0.8, Eos # (Auto) 0.2, Baso # (Auto) 0.1, Total Counted 100, Neutrophils % (Manual) 88 H, Lymphocytes % (Manual) 7 L, Monocytes % (Manual) 5, Platelet Estimate Normal, RBC Morphology Normal, ESR 13 12/22/22 06:05: Sodium 127 L, Potassium 5.3 H, Chloride 96 L, Carbon Dioxide 23, Anion Gap 13.3, BUN 31 H, Creatinine 0.90, Estimated Creat Clear 107, Estimated GFR 84, Est GFR ( Amer) 102 D, Glucose 116 H D, Calcium 7.8 L, Magnesium 2.8 H, Total Bilirubin 1.7 H, AST 45, ALT 23 D, Alkaline Phosphatase 168 H, C-Reactive Protein 293.8 H, Total Protein 5.4 L, Albumin 2.5 L D, Globulin 2.9, Albumin/Globulin Ratio 0.9 L 12/22/22 12:02: POC Glucose 143 H I & O for Labs for Last 24 Hours: Intake & Output 12/19/22 12/20/22 12/21/22 12/22/22 23:59 23:59 23:59 23:59 Intake Total 240 / 240 240 / 240 Output Total 1150 / 1150 Balance 240 / 40 -910 / -910 Weight 106.764 kg 106 kg Microbiology Reports for the Last 24 Hours: Microbiology 12/21/22 10:53 Blood Blo
[2022-12-22 15:16] LABS: Creatinine,Urine Random 46 mg/dL (Not Estab.)
--- NOTE | 2022-12-22 16:54 | CA_ITS ---
APPROVED REPORT EXAM: Comprehensive 2D, Doppler, and color-flow Echocardiogram Ticket Broker: Mallorie Jimenes CRT Ht: 6 ft 0 in Wt: 235lbs BSA: 2.28 BP: 138/70 mmHg Indications: Shortness of Breath, Atrial Fibrillation, Diabetes, Obesity, Fatigue, Hypertension/HDD 2D Dimensions LVOT 1.89 cm (M/F) 1.5-2.5 LA Volume 29.40 mL LA Volume Index 12.60 mL/m2 (M/F) 16-34 M-Mode Dimensions RVDd 2.50 cm (0.9-2.6) LA Diam 3.17 cm (1.9-4.0) LVDd 4.71 cm (3.5-5.7) Ao Diam 4.20 cm (2.0-3.7) LVDs 2.62 cm (3.5-5.7) IVSd 1.77 cm (0.6-1.1) PWd 0.64 cm (0.6-1.1) EF (Teich) 75.60% FS 44.40% EDV (Teich) 102.90 mL TAPSE 2.78 (<1.7) ESV (Teich) 25.10 mL LV Diastology E Decel Time 177.00 (160-240 msec) E/A Ratio 0.86 MED E' 5.00 (< 7 cm/sec) MED A' 13.60 cm/s E'/MED E' Ratio 22.48 (>14) LAT E' 8.90 (<10 cm/sec) LAT A' 14.20 cm/s E/LAT E' Ratio 12.63 (>14) Aortic Valve AO Peak GR. 9.70 mmHg Mitral Valve MV E Max Live. 112.00 (40-130 cm/s) MV A Velocity 131.00 (40-130 cm/s) E/A Ratio 0.86 MV Decel. Time 177.00 (160-240 ms) MV PHT 52.00 ms Pulmonary Valve PV Peak Velocity 152.00 (50-150 cm/s) Tricuspid Valve TR P. Velocity 120.00 cm/s RAP Estimate 10.00 mmHg RVSP 15.70 mmHg Left Ventricle Left atrium is mildly enlarged, left ventricle is normal size, mild concentric left ventricular hypertrophy, estimated ejection fraction 55% with no regional wall motion abnormality, grade 1 diastolic dysfunction seen without tissue Doppler evidence of late left atrial pressure. Right Ventricle Right atrium and right ventricular normal size and contractility. Aortic Valve Aortic valve is thickened and calcified without aortic stenosis or aortic insufficiency. Mitral Valve Mitral valve has mitral annular calcification, which extends in both anterior posterior mitral leaflet, there is no mitral stenosis, there is mild mitral regurgitation. Tricuspid Valve Tricuspid valve grossly normal, there is mild tricuspid regurgitation, tricuspid regurgitation (inadequate for calculation of the right ventricular systolic pressure. Pulmonic Valve Pulmonic valve is poorly visualized. Great Vessels Aortic root is normal size. Inferior vena cava is poorly visualized. Pericardium No significant pericardial effusion noted. Conclusion 1. Mildly enlarged left atrium, normal left ventricular size, mild concentric left ventricular hypertrophy, estimated ejection fraction 55% with no regional wall motion abnormality, grade 1 diastolic dysfunction seen without tissue Doppler evidence of raise left atrial pressure. 2. Thickened and calcified aortic valve without aortic stenosis or aortic insufficiency. 3. Mild mitral and tricuspid regurgitation. 4. No significant pericardial effusion noted. 5. Inferior vena cava is poorly visualized. Electronically signed by : Darion Cunningham MD 12/22/2022 19:08:43
--- NOTE | 2022-12-22 18:27 | PC.NURSE ---
pt more alert today than last night on admission. c/o pain at rt shoulder and left lower back t/o shift, treated per dec. md notified. pt agitated at times due to pain. redness to rue, edema +2 non pitting, have noticed a decrease in swelling from last night. pt rue pain was relived by pain meds, pt still c/o sciatic pain, pt did gret some relief while up to chair. notified MD about pt ref [id number] metformin. cb and personal items within reach on lt side.
[2022-12-22 21:48] LABS: POC Glucose,Bedside 176 (70-110)
[2022-12-23] VITALS (25 sets, daily range): BP systolic 119–158; BP diastolic 50–73; PULSE 68–90; RESP 12–18; TEMP 36.1–37.1; O2SAT 90–95; BMI 31.6
--- NOTE | 2022-12-23 01:12 | XR_ITS ---
PROCEDURE INFORMATION: Exam: XR Abdomen Exam date and time: 12/23/2022 2:16 AM Age: 67 years old Clinical indication: Constipation; Abdominal pain; Additional info: Abdominal pain, constipation TECHNIQUE: Imaging protocol: Radiologic exam of the abdomen. Views: Frontal supine view of the abdomen. 1 View. Total images: 3 COMPARISON: No relevant prior studies available. FINDINGS: Lungs: Calcification at the dome of the liver may reflect calcified lung base granuloma. Gastrointestinal tract: Nonspecific, nonobstructive bowel gas distribution. No significant colonic or rectal stool burden. No disproportionately dilated bowel segments. Bones/joints: Mild degenerative changes thoracolumbar spine and bilateral hips. No acute osseous abnormality. Soft tissues: Peritoneal fascial planes are maintained. IMPRESSION: 1. Nonspecific, nonobstructive bowel gas pattern. 2. No significant rectal or colonic stool burden/constipation.
--- NOTE | 2022-12-23 01:40 | PC.NURSE ---
pt complains of abdominal pain, burning sensation and points to mid abdomen, pt stated last bm 5 days ago but stated he does not feel like that is it, michele olivo aprn called and is at bedside to assess, note new orders entered per provider, pt verbalized understanding of all order per provider, no acute distress, pt rates pain 8-9/10 in abd.
--- NOTE | 2022-12-23 03:00 | PC.NURSE ---
0300 blood culture results called to michele mcmillan aprn, no new orders at this time.
--- NOTE | 2022-12-23 04:19 | PC.NURSE ---
pt alert and oriented x4, pt with RUE redness and swelling noted, pt rates pain 7/10, + radial pulse noted, ble edema noted 2+, vss, telemetry reveals NSR with BBB, pt c/p abdominal pain rated 9/10 through the night, kub obtained per orders, pt medicated per orders from provider, pt still complaining of abd pain at this time and medicated with oxycodone with small sip of h20, pt remains npo for surgery consult in am, blood cultures + and called to michele vences, pt with limited rom to rue due to pain, no other issues or concerns at this time, no acute distress, vss.
[2022-12-23 06:50] LABS: Basophils % 0.2 % (0.1-2.0); Eosinophils # 0.2 K/mm3 (0.0-0.4); Eosinophils % 0.7 % (0.1-12.0); Hematocrit 41.7 % (42.0-52.0); Lymphocytes # 0.8 K/mm3 (0.7-4.5); Lymphocytes % 3.5 % (10-50); Mean Corpuscular HGB Conc 31.2 g/dL (31.8-35.4); Mean Corpuscular Hemoglobin 28.6 pg (27.0-31.2); Mean Corpuscular Volume 91.6 fl (80-94); Mean Platelet Volume 10.9 fl (7.4-10.4); Monocytes # 0.8 K/mm3 (0.1-1.0); Monocytes % 3.9 % (1.7-9.3); Neutrophils # 19.7 K/mm3 (1.8-7.8); Neutrophils % 91.8 % (37.0-80.0); Platelet Count 225 K/mm3 (142-424); Red Blood Count 4.56 M/mm3 (4.60-6.20); Red Cell Distribution Width 13.1 % (11.5-17.5); White Blood Count 21.4 K/mm3 (4.8-10.8)
[2022-12-23 06:52] LABS: MANUAL DIFFERENTIAL MANUAL DIFFERENTIAL (MANUAL DIFF)
[2022-12-23 06:55] LABS: Anion Gap 9.4 mEq/L (5-15); Blood Urea Nitrogen 33 mg/dl (9-20); Calcium 7.7 mg/dl (8.4-10.2); Carbon Dioxide 27 mmol/L (22.0-30.0); Chloride 93 mmol/L (98-107); Chol/HDL Ratio 6.6 (1-3.5); Cholesterol 66 mg/dl (140-200); Creatinine Clearance Estimated 88 mL/min (50-200); Estimated Glomerular Filt Rate 60 ml/min (>60); GFR (African American) 73 ML/MIN (>60); Glucose 190 mg/dl (74-100); HDL Cholesterol 10 mg/dl (40-60); Potassium 4.4 mmoL/L (3.5-5.1); Sodium 125 mmol/L (136-145); Triglycerides 101 mg/dl (30-150); VLDL Cholesterol 20 mg/dL (0-40)
[2022-12-23 07:03] LABS: POC Glucose,Bedside 177 (70-110)
[2022-12-23 07:03] LABS: POC Glucose,Bedside 148 (70-110)
[2022-12-23 07:06] LABS: Direct LDL Cholesterol < 30.00 mg/dL (100-129)
[2022-12-23 07:57] LABS: Lymphocytes % 3 % (10-50); Monocytes % 4 % (2-9); Neutrophils % 93 % (42-76); Platelet Estimate Normal; RBC Morphology Normal; Total Cells Counted 100
--- NOTE | 2022-12-23 08:00 | US_ITS ---
FINAL REPORT TECHNIQUE: Sonographic images of the right upper quadrant were obtained. CLINICAL HISTORY: cirrhosis FINDINGS: PANCREAS: Obscured. LIVER: Homogeneous. No focal hepatic lesion. No intrahepatic biliary ductal dilatation. GALLBLADDER: Distended. There is sludge and likely several small stones. No gallbladder wall thickening or pericholecystic fluid. COMMON DUCT: 4 mm. Normal for age. RIGHT KIDNEY: The right kidney measures 13.3 cm. There is no hydronephrosis, mass, or stone. FREE FLUID: None. IMPRESSION: Sludge and stones in a distended gallbladder with a normal common duct. Reviewed, Interpreted and Dictated by Tawana Heard MD Transcribed by Chela Alford Authenticated and [facility]
--- NOTE | 2022-12-23 08:01 | EXP.PN ---
Subjective *Date: 12/23/22 *Time: 12:28 Interval history: Date of service December 23, 2022 The patient reports adequate pain control. Nursing staff reports that he remains afebrile with stable vital signs and saturating appropriately on 2 L of oxygen via nasal cannula. He reports a past history of alcohol dependence but it was many years ago. He reports no routine alcohol consumption. He denies a previous history of liver disease he. He denies hepatitis C. We have reviewed and discussed his morning labs and I have personally interpreted his labs as follows: A CBC with a leukocytosis white blood cell count 21.4, stable hemoglobin of 13, hematocrit 41.7 and platelet count 225. His MCV is 92. His CBC identifies a left shift. His INR is elevated at 1.42. His electrolytes identify sodium 125, potassium 4.4, chloride 93, carbon dioxide 27, anion gap 9.4, BUN 33 and creatinine 1.2. His glucose trend is under 200. His total bilirubin was 2.8 with a normal AST and ALT. He is tolerating his IV antibiotic therapy with no adverse events. His blood cultures are identifying MSSA. Cardiology and orthopedic surgery are following the patient. Exam Data for Last 24 hours Vital signs and Labs for Last 24 Hours: Temp Pulse Resp BP Pulse Ox 97.9 F 79 17 133/65 92 L 12/23/22 07:12 12/23/22 07:12 12/23/22 07:12 12/23/22 07:12 12/23/22 07:12 Laboratory Results - last 24 hr 12/22/22 12:02: POC Glucose 143 H 12/22/22 14:30: Urine Creatinine 46, Urine Microalbumin 23.000 H, Microalb/Creat Ratio 50.0, Urine Total Protein 22.0 H 12/22/22 16:36: POC Glucose 148 H 12/22/22 21:00: POC Glucose 176 H 12/23/22 06:15: WBC 21.4 H*, RBC 4.56 L, Hgb 13.0 L, Hct 41.7 L, MCV 91.6, MCH 28.6, MCHC 31.2 L, RDW 13.1, Plt Count 225, MPV 10.9 H, Neut % (Auto) 91.8 H, Lymph % (Auto) 3.5 L, [place] % (Auto) 3.9, Eos % (Auto) 0.7, Baso % (Auto) 0.2, Neut # (Auto) 19.7 H, Lymph # (Auto) 0.8, [place] # (Auto) 0.8, Eos # (Auto) 0.2, Baso # (Auto) 0.0, Total Counted 100, Neutrophils % (Manual) 93 H, Lymphocytes % (Manual) 3 L, Monocytes % (Manual) 4, Platelet Estimate Normal, RBC Morphology Normal 12/23/22 06:15: Sodium 125 L, Potassium 4.4, Chloride 93 L, Carbon Dioxide 27, Anion Gap 9.4, BUN 33 H, Creatinine 1.20 D, Estimated Creat Clear 88, Estimated GFR 60, Est GFR ( Amer) 73 D, Glucose 190 H, Calcium 7.7 L, Triglycerides 101, Cholesterol 66 L, LDL Cholesterol Direct < 30.00 L, VLDL Cholesterol 20, HDL Cholesterol 10 L, Cholesterol/HDL Ratio 6.6 H 12/23/22 06:44: POC Glucose 177 H I & O for Last 24 hours: Intake & Output 12/20/22 12/21/22 12/22/22 12/23/22 23:59 23:59 23:59 23:59 Intake Total 240 / 240 960 / 960 450 / 450 Output Total 1945 / 2245 600 / 600 Balance 240 / 40 -985 / -1285 -150 / -150 Weight 106.764 kg 106 kg 105.778 kg Microbiology Reports for the Last 24 Hours: Microbiology 12/22/22 09:00 Blood Blood Culture - Preliminary 12/22/22 09:00 Blood Blood Culture - Preliminary 12/21/22 10:53 Blood Blood Culture - Preliminary 12/21/22 10:53 Blood Blood Culture - Preliminary Constitutional Constitutional: no acute distress, obese and cooperative *Routine HEENT Exam Head: Present normocephalic Eye: Present EOMI and PERRL ENT: Present mucous membranes moist *Routine Neck Exam Neck: Present supple and full ROM; Absent JVD or lymphadenopathy *Routine Respiratory Exam Respiratory: Present CTA bilaterally, normal respiratory effort and symmetric chest movement *Routine Cardiovascular Exam Cardiovascular: Present RRR; Absent murmur *Routine Abdominal Exam Abdominal: Present soft and normoactive bowel sounds; Absent tenderness or organomegaly *Routine Extremities Exam Extremities: Absent cyanosis, clubbing or edema Comments: Right upper extremity tender *Routine Skin Exam Skin: Present warm; Absent rash or ecchymosis *Routine Neurological Exam Neurological: Present alert, oriented X3, moving all extremities, normal tone
--- NOTE | 2022-12-23 09:28 | EXP.ORTH.PN ---
Subjective *Date: 12/23/22 *Time: 16:51 Interval history: Patient is a 67-year-old male admitted to the acute inpatient service with a 2-week history of right shoulder and arm erythema, pain. This morning the patient is lying comfortably in bed. He continues to report right shoulder pain but states it is well controlled with as needed pain medication and rest. He underwent MRI of the right shoulder yesterday. His past medical history is significant for diabetes, hypertension, atrial fibrillation on chronic anticoagulation with Eliquis. His last dose of Eliquis was the morning of 12/21/2022. He has been n.p.o. since midnight in anticipation of surgery today. He denies any other symptoms or concerns at this time. Ortho Exam (Inpt) Vital signs and Labs for Last 24 Hours: Temp Pulse Resp BP Pulse Ox 97.9 F 79 17 133/65 92 L 12/23/22 07:12 12/23/22 07:12 12/23/22 07:12 12/23/22 07:12 12/23/22 07:12 Laboratory Results - last 24 hr 12/22/22 12:02: POC Glucose 143 H 12/22/22 14:30: Urine Creatinine 46, Urine Microalbumin 23.000 H, Microalb/Creat Ratio 50.0, Urine Total Protein 22.0 H 12/22/22 16:36: POC Glucose 148 H 12/22/22 21:00: POC Glucose 176 H 12/23/22 06:15: WBC 21.4 H*, RBC 4.56 L, Hgb 13.0 L, Hct 41.7 L, MCV 91.6, MCH 28.6, MCHC 31.2 L, RDW 13.1, Plt Count 225, MPV 10.9 H, Neut % (Auto) 91.8 H, Lymph % (Auto) 3.5 L, [place] % (Auto) 3.9, Eos % (Auto) 0.7, Baso % (Auto) 0.2, Neut # (Auto) 19.7 H, Lymph # (Auto) 0.8, [place] # (Auto) 0.8, Eos # (Auto) 0.2, Baso # (Auto) 0.0, Total Counted 100, Neutrophils % (Manual) 93 H, Lymphocytes % (Manual) 3 L, Monocytes % (Manual) 4, Platelet Estimate Normal, RBC Morphology Normal 12/23/22 06:15: Sodium 125 L, Potassium 4.4, Chloride 93 L, Carbon Dioxide 27, Anion Gap 9.4, BUN 33 H, Creatinine 1.20 D, Estimated Creat Clear 88, Estimated GFR 60, Est GFR ( Amer) 73 D, Glucose 190 H, Calcium 7.7 L, Triglycerides 101, Cholesterol 66 L, LDL Cholesterol Direct < 30.00 L, VLDL Cholesterol 20, HDL Cholesterol 10 L, Cholesterol/HDL Ratio 6.6 H 12/23/22 06:44: POC Glucose 177 H I & O for Labs for Last 24 Hours: Intake & Output 12/20/22 12/21/22 12/22/22 12/23/22 23:59 23:59 23:59 23:59 Intake Total 240 / 240 960 / 960 450 / 450 Output Total 1945 / 2245 750 / 750 Balance 240 / 40 -985 / -1285 -300 / -300 Weight 235 lb 6 oz 233 lb 11.04 oz 233 lb 3.2 oz Microbiology Reports for the Last 24 Hours: Microbiology 12/22/22 09:00 Blood Blood Culture - Preliminary 12/22/22 09:00 Blood Blood Culture - Preliminary 12/21/22 10:53 Blood Blood Culture - Preliminary 12/21/22 10:53 Blood Blood Culture - Preliminary Head: Present normocephalic and atraumatic Eyes: Present as per HPI ENT: Present normal exam Neck: Present normal inspection, full ROM and trachea midline; Absent lymphadenopathy Respiratory: Present normal respiratory effort, able to speak in complete sentences and symmetric chest movement; Absent accessory muscle use Cardiac: Present Reg Rate and Rhythm GI: Present soft; Absent tenderness Comment:: Right upper extremity: Skin is intact. Diffuse edema, redness anterior brachial/ecchymosis. Pain with any attempted shoulder range of motion. Swollen tender AC joint. Distal neurovascular status grossly intact. Diagnostic imaging: MRI of the right shoulder performed at [facility] on 12/22/2022 reviewed along with radiologist's report. MRI of the right shoulder demonstrates edema within the acromioclavicular joint concerning for septic arthritis. Peripheral fluid collection concerning for abscess also noted. Radiologist's report is as follows: IMPRESSION: Significant abnormal signal intensity within the muscles surrounding the right shoulder and along the lateral right chest wall concerning for myositis and cellulitis. Peripherally enhancing collection dissecting through the soft tissues, abscess is a consideration. Edema of the AC joint wi
--- NOTE | 2022-12-23 09:57 | EXP.CARD.PN ---
Subjective Subjective Date: 12/23/22 Time: 09:00 Principal diagnosis: shoulder pain, diastolic dysfunction Interval history: This is a 67-year-old white gentleman who presented to the emergency department with complaints of right shoulder pain and arm pain and redness for approximately 2 weeks. The patient states that he woke up suddenly 2 weeks ago with this right shoulder and arm pain and an redness while he was visiting a friend in [place]. Last week he went to [facility] and got a steroid injection and his symptoms worsened. The patient does have a right upper extremity and right shoulder cellulitis with an elevated white blood cell count. He is bacteremic and positive for staph in the right shoulder. He is scheduled to undergo surgery this morning on his shoulder with orthopedics. He did have an MRI of the right shoulder which showed septic arthritis and abscess. This morning he denies any chest pain or pressure. He denies any shortness of breath. His bilateral lower extremity edema has improved. He denies any fever, chills, nausea, vomiting, diarrhea, PND or orthopnea. His only complaint is his right upper extremity pain. Exam Data for Last 24 hours Vital signs and Labs for Last 24 Hours: Temp Pulse Resp BP Pulse Ox 97.9 F 80 17 133/65 92 L 12/23/22 07:12 12/23/22 08:00 12/23/22 07:12 12/23/22 07:12 12/23/22 07:12 Laboratory Results - last 24 hr 12/22/22 12:02: POC Glucose 143 H 12/22/22 14:30: Urine Creatinine 46, Urine Microalbumin 23.000 H, Microalb/Creat Ratio 50.0, Urine Total Protein 22.0 H 12/22/22 16:36: POC Glucose 148 H 12/22/22 21:00: POC Glucose 176 H 12/23/22 06:15: WBC 21.4 H*, RBC 4.56 L, Hgb 13.0 L, Hct 41.7 L, MCV 91.6, MCH 28.6, MCHC 31.2 L, RDW 13.1, Plt Count 225, MPV 10.9 H, Neut % (Auto) 91.8 H, Lymph % (Auto) 3.5 L, [place] % (Auto) 3.9, Eos % (Auto) 0.7, Baso % (Auto) 0.2, Neut # (Auto) 19.7 H, Lymph # (Auto) 0.8, [place] # (Auto) 0.8, Eos # (Auto) 0.2, Baso # (Auto) 0.0, Total Counted 100, Neutrophils % (Manual) 93 H, Lymphocytes % (Manual) 3 L, Monocytes % (Manual) 4, Platelet Estimate Normal, RBC Morphology Normal 12/23/22 06:15: Sodium 125 L, Potassium 4.4, Chloride 93 L, Carbon Dioxide 27, Anion Gap 9.4, BUN 33 H, Creatinine 1.20 D, Estimated Creat Clear 88, Estimated GFR 60, Est GFR ( Amer) 73 D, Glucose 190 H, Calcium 7.7 L, Triglycerides 101, Cholesterol 66 L, LDL Cholesterol Direct < 30.00 L, VLDL Cholesterol 20, HDL Cholesterol 10 L, Cholesterol/HDL Ratio 6.6 H 12/23/22 06:44: POC Glucose 177 H I & O for Last 24 hours: Intake & Output 12/20/22 12/21/22 12/22/22 12/23/22 23:59 23:59 23:59 23:59 Intake Total 240 / 240 960 / 960 450 / 450 Output Total 1945 / 2245 750 / 750 Balance 240 / 40 -985 / -1285 -300 / -300 Weight 235 lb 6 oz 233 lb 11.04 oz 233 lb 3.2 oz Microbiology Reports for the Last 24 Hours: Microbiology 12/22/22 09:00 Blood Blood Culture - Preliminary 12/22/22 09:00 Blood Blood Culture - Preliminary Narrative: Echocardiogram shows: 1.? Mildly enlarged left atrium, normal left ventricular size, mild concentric left ventricular hypertrophy, estimated ejection fraction 55% with no regional wall motion abnormality, grade 1 diastolic dysfunction seen without tissue Doppler evidence of raise left atrial pressure. 2.? Thickened and calcified aortic valve without aortic stenosis or aortic insufficiency. 3.? Mild mitral and tricuspid regurgitation. 4.? No significant pericardial effusion noted. 5.? Inferior vena cava is poorly visualized. Constitutional Constitutional: no acute distress and obese *Routine HEENT Exam Head: Present normocephalic and atraumatic ENT: Present mucous membranes moist *Routine Neck Exam Neck: Present supple, full ROM and normal carotid upstroke; Absent JVD, carotid bruit or lymphadenopathy *Routine Respiratory Exam Respiratory: Present crackles, normal respiratory effort, able to speak in complete sentences an
[2022-12-23 11:32] LABS: POC Glucose,Bedside 164 (70-110)
[2022-12-23 11:40] LABS: Vancomycin,Trough 17.4 ug/mL (5.0-10.0)
[2022-12-23 16:53] LABS: Vancomycin,Peak 34.3 ug/ml (11-39)
[2022-12-23 17:17] LABS: POC Glucose,Bedside 177 (70-110)
--- NOTE | 2022-12-23 18:14 | EXP.OP.NOTE ---
Date of procedure: 12/23/22 Pre-op Diagnosis:: right shoulder infection Post-op Diagnosis:: same Procedure performed:: 67256: Right acromioclavicular arthrotomy 13315: Right glenohumeral arthrotomy 58501: Incision and drainage of abscess Surgeon:: Missael Flynn JR, MD [employer]:: Billy Carrillo Anesthesia: GETA Estimated blood loss (mL): 30 Clinical Note:: 67-year-old male with 2-week history of right shoulder pain. He had elevated inflammatory markers, is on Eliquis. His Eliquis was held 2 days. MRI demonstrated glenohumeral, acromioclavicular effusion, large abscess in the subdeltoid region. I had a discussion with him regarding further management, recommended right acromioclavicular, glenohumeral arthrotomy, debridement irrigation of abscess. He was amenable with the plan. We discussed the risk and benefits of surgery. Risks included but were not limited to pain, bleeding, infection, damage to adjacent structures, need for further surgery, wound healing complications, loss of limb, . Patient expressed verbal consent and written consent was obtained for the above procedure. Operative findings:: Copious purulence. Operative note:: Patient was identified in preoperative holding. Operative site was marked in indelible ink. History, physical, consent were reviewed and updated. Patient was surrendered to the anesthesia team, taken to the operative suite, placed supine on a well-padded operative table. Anesthesia was induced. The operative extremity was prepped and draped in the usual sterile fashion. The operative team donned sterile gowns and gloves and a timeout was called. All in attendance agreed regarding the patient's identity, procedure, operative site. Weight-based dose of antibiotics was given prior to incision. Made a longitudinal incision along the deltopectoral groove, carried this dorsally to the acromioclavicular joint. I noted purulence tracking proximally, carried this up over the deltoid to the posterior border of the scapula. I bluntly dissected into the deltopectoral groove, noted a copious amount of purulent appearing fluid, swab specimens of which I sent for culture. I irrigated this fluid, bluntly probed, noted purulence tracking inferior to the glenoid. I followed the long head of the biceps tendon, access to the glenohumeral joint via the rotator interval. I opened the acromioclavicular joint, copiously irrigated the acromioclavicular joint, glenohumeral joint, and abscess. I bluntly probed throughout the wound, noted no further purulence. I applied vancomycin powder to the wound, closed with PDS suture and cristel. Sterile dressings applied. Counts were correct x2. There were no apparent complications. I was present and scrubbed for the entire case. Condition: stable Disposition: PACU Complications:: None apparent Postop plan: Continue broad-spectrum antibiotics. Should his clinical situation deteriorate, I think he would be appropriate for transfer to higher level of care given the extensive nature of his infection. I think any further surgery should likely be performed by a shoulder specialist. If he continues to improve clinically, follow-up in 2 weeks for wound check in clinic. I anticipate need for PICC line, I think he would benefit from infectious disease evaluation by Richard [facility]borne in [place].
--- NOTE | 2022-12-23 18:21 | P.PNANES_ITS ---
[facility] Anesthesia Record Part I Anesthesia Record I Intake, IV Amount: 1,500 Estimated blood loss (mL): 50 Urine output (mL): 0 Blood Pressure: 119/50 SaO2: 92 Pulse Rate: 72 Respiratory Rate: 12 Temperature: 97.4 F Patient is:: Awake and Stable Stable to PACU at:: 18:10
--- NOTE | 2022-12-23 18:55 | SUR.PHASEI ---
1839-Detailed report called to Zully MEYER. Pt transported via bed to 2nd floor per Tomy MEYER & Maile. Pt left in care of Zully MEYER. VSS.
[2022-12-24] VITALS (12 sets, daily range): BP systolic 95–136; BP diastolic 46–77; PULSE 60–72; RESP 16–18; TEMP 36.3–36.9; O2SAT 90–100; BMI 31.6
[2022-12-24 01:02] LABS: POC Glucose,Bedside 215 (70-110)
[2022-12-24 01:02] LABS: POC Glucose,Bedside 213 (70-110)
--- NOTE | 2022-12-24 02:48 | PC.NURSE ---
RESTING IN BED. BULKY SURGICAL DRESSING TO RIGHT SHOULDER C/D/I. NO C/O PAIN.
[2022-12-24 05:50] LABS: POC Glucose,Bedside 342 (70-110)
[2022-12-24 06:57] LABS: Basophils # 0.1 K/mm3 (0-0.2); Basophils % 0.4 % (0.1-2.0); Eosinophils % 0.1 % (0.1-12.0); Hematocrit 44.9 % (42.0-52.0); Hemoglobin 13.6 g/dL (14.1-18.0); Lymphocytes # 0.6 K/mm3 (0.7-4.5); Lymphocytes % 3.1 % (10-50); Mean Corpuscular HGB Conc 30.3 g/dL (31.8-35.4); Mean Corpuscular Hemoglobin 28.7 pg (27.0-31.2); Mean Corpuscular Volume 94.9 fl (80-94); Mean Platelet Volume 11.2 fl (7.4-10.4); Monocytes # 0.4 K/mm3 (0.1-1.0); Monocytes % 1.9 % (1.7-9.3); Neutrophils % 94.5 % (37.0-80.0); Platelet Count 202 K/mm3 (142-424); Red Blood Count 4.73 M/mm3 (4.60-6.20); Red Cell Distribution Width 13.1 % (11.5-17.5); White Blood Count 20.1 K/mm3 (4.8-10.8)
[2022-12-24 07:04] LABS: INR 1.43 (0.9-1.1); Prothrombin Time 15.1 seconds (10.1-12.5)
[2022-12-24 07:05] LABS: MANUAL DIFFERENTIAL MANUAL DIFFERENTIAL (MANUAL DIFF)
[2022-12-24 07:06] LABS: Alanine Aminotransferase 27 U/L (12-78); Albumin Level 2.5 g/dl (3.5-5.0); Albumin/Globulin Ratio 0.8 (1.1-1.8); Alkaline Phosphatase 193 U/L (38-126); Anion Gap 12.4 mEq/L (5-15); Aspartate Amino Transferase 51 U/L (17-59); Bilirubin,Total 1.6 mg/dl (0.2-1.3); Blood Urea Nitrogen 46 mg/dl (9-20); Calcium 7.7 mg/dl (8.4-10.2); Carbon Dioxide 22 mmol/L (22.0-30.0); Chloride 98 mmol/L (98-107); Creatinine Clearance Estimated 82 mL/min (50-200); Estimated Glomerular Filt Rate 55 ml/min (>60); GFR (African American) 66 ML/MIN (>60); Globulin 3.1 g/dL (1.3-3.2); Glucose 260 mg/dl (74-100); Potassium 4.4 mmoL/L (3.5-5.1); Sodium 128 mmol/L (136-145); Total Protein,Serum 5.6 g/dl (6.3-8.2)
[2022-12-24 07:14] LABS: NT Pro Brain Natriuretic Pep. 2250 pg/mL (0-125)
[2022-12-24 07:16] LABS: Ammonia < 9 umol/L (9-30)
[2022-12-24 07:22] LABS: Procalcitonin 4.95 ng/mL (0.0-2.0)
[2022-12-24 07:24] LABS: C-Reactive Protein 361.8 mg/L (0-4)
[2022-12-24 07:34] LABS: Erythrocyte Sedimentation Rate 18 mm/hr (0-20)
[2022-12-24 07:55] LABS: Lymphocytes % 5 % (10-50); Monocytes % 2 % (2-9); Neutrophils % 93 % (42-76); Platelet Estimate Normal; RBC Morphology Normal; Total Cells Counted 100
--- NOTE | 2022-12-24 09:24 | EXP.PHA.CONS ---
Pharmacy Consult Date: 12/24/22 Time: 09:24 Referring provider: DR ALVES Reason for Consult:: VANCOMYCIN PEAK AND TROUGH LEVELS OBTAINED. Allergies Allergy/AdvReac Type Severity Reaction Status Date / Time buspirone [From BuSpar] Allergy Verified 12/21/22 11:12 Home Medications Medication Instructions Recorded Confirmed Type apixaban 5 mg tablet (Eliquis) 5 mg PO BID Blood thinner/atrial 12/21/22 12/21/22 History fib atorvastatin 80 mg tablet 80 mg PO DAILY Cholesterol 12/21/22 12/21/22 History clopidogrel 75 mg tablet 75 mg PO DAILY platelet inhibitor 12/21/22 12/21/22 History duloxetine 30 mg capsule,delayed 60 mg PO DAILY Depression 12/21/22 12/21/22 History release empagliflozin 25 mg tablet 25 mg PO DAILY Diabetes 12/21/22 12/21/22 History (Jardiance) fluticasone propionate 50 1 spray intranasal DAILY allergies 12/21/22 12/21/22 History mcg/actuation nasal spray,suspension glipizide 10 mg tablet, extended 10 mg PO DAILY Diabetes 12/21/22 12/21/22 History release 24 hr metformin 1,000 mg tablet 1,000 mg PO BID Diabetes 12/21/22 12/21/22 History metoprolol tartrate 25 mg tablet 25 mg PO BID High blood pressure 12/21/22 12/22/22 History pantoprazole 40 mg tablet,delayed 40 mg PO DAILY acid reflux 12/21/22 12/21/22 History release New Prescriptions to Start Prescriptions: Height: 1.83 m Weight: 105.971 kg Laboratory Results:: Laboratory Results - last 24 hr 12/23/22 10:30: Vancomycin Trough 17.4 H 12/23/22 11:03: POC Glucose 164 H 12/23/22 15:28: Vancomycin Peak 34.3 12/23/22 16:30: POC Glucose 177 H 12/23/22 21:15: POC Glucose 213 H 12/24/22 00:41: POC Glucose 215 H 12/24/22 05:24: POC Glucose 342 H* 12/24/22 06:20: WBC 20.1 H*, RBC 4.73, Hgb 13.6 L, Hct 44.9, MCV 94.9 H, MCH 28.7, MCHC 30.3 L, RDW 13.1, Plt Count 202, MPV 11.2 H, Neut % (Auto) 94.5 H, Lymph % (Auto) 3.1 L, [place] % (Auto) 1.9, Eos % (Auto) 0.1, Baso % (Auto) 0.4, Neut # (Auto) 19.0 H, Lymph # (Auto) 0.6 L, [place] # (Auto) 0.4, Eos # (Auto) 0.0, Baso # (Auto) 0.1, Total Counted 100, Neutrophils % (Manual) 93 H, Lymphocytes % (Manual) 5 L, Monocytes % (Manual) 2, Platelet Estimate Normal, RBC Morphology Normal, ESR 18 12/24/22 06:20: PT 15.1 H, INR 1.43 H 12/24/22 06:20: Sodium 128 L, Potassium 4.4, Chloride 98, Carbon Dioxide 22, Anion Gap 12.4, BUN 46 H D, Creatinine 1.30 H, Estimated Creat Clear 82, Estimated GFR 55 L, Est GFR ( Amer) 66, Glucose 260 H, Calcium 7.7 L, Total Bilirubin 1.6 H, AST 51, ALT 27, Alkaline Phosphatase 193 H, C-Reactive Protein 361.8 H, NT-Pro-B Natriuret Pep 2250 H, Total Protein 5.6 L, Albumin 2.5 L, Globulin 3.1, Albumin/Globulin Ratio 0.8 L, Procalcitonin 4.95 H 12/24/22 06:20: Ammonia < 9 L Medical History: Medical History (Updated 12/23/22 @ 10:03 by Kami Hogue APRN) Atrial fibrillation Chronic anticoagulation Coronary artery disease Diabetes Edema Elevated liver enzymes Essential hypertension Hyperlipidemia Nephritic syndrome Assessment and Plan Assessment and plan all Dx Assessment and Plan for all problems:: VANCOMYCIN PEAK AND TROUGH LEVELS OBTAINED. PEAK: 34.3 MCG/ML (12/23/22 15:28) TROUGH: 17.4 MCG/ML (12/23/22 10:30) RECOMMEND CONTINUING CURRENT IV VANCOMYCIN DOSE OF 1750 MG Q12H.
--- NOTE | 2022-12-24 09:30 | EXP.ORTH.PN ---
Subjective *Date: 12/24/22 *Time: 08:50 Interval history: Patient is a 67-year-old male admitted to the acute inpatient service with a 2-week history of right shoulder and arm erythema, pain. He underwent right shoulder acromioclavicular arthrotomy, glenohumeral arthrotomy, and incision and drainage of abscess yesterday evening 12/23/[address] Flynn. Today the patient is postop day #1. This morning he is lying comfortably in bed. He reports right shoulder pain but states that it is improved from prior to surgery. He has not yet had anything to eat or drink today. No history of any distal tingling/numbness. He denies any other symptoms or concerns at this time. Ortho Exam (Inpt) Vital signs and Labs for Last 24 Hours: Temp Pulse Resp BP Pulse Ox 97.6 F 68 17 129/59 L 92 L 12/24/22 07:18 12/24/22 07:18 12/24/22 07:18 12/24/22 07:18 12/24/22 07:18 Laboratory Results - last 24 hr 12/23/22 10:30: Vancomycin Trough 17.4 H 12/23/22 11:03: POC Glucose 164 H 12/23/22 15:28: Vancomycin Peak 34.3 12/23/22 16:30: POC Glucose 177 H 12/23/22 21:15: POC Glucose 213 H 12/24/22 00:41: POC Glucose 215 H 12/24/22 05:24: POC Glucose 342 H* 12/24/22 06:20: WBC 20.1 H*, RBC 4.73, Hgb 13.6 L, Hct 44.9, MCV 94.9 H, MCH 28.7, MCHC 30.3 L, RDW 13.1, Plt Count 202, MPV 11.2 H, Neut % (Auto) 94.5 H, Lymph % (Auto) 3.1 L, [place] % (Auto) 1.9, Eos % (Auto) 0.1, Baso % (Auto) 0.4, Neut # (Auto) 19.0 H, Lymph # (Auto) 0.6 L, [place] # (Auto) 0.4, Eos # (Auto) 0.0, Baso # (Auto) 0.1, Total Counted 100, Neutrophils % (Manual) 93 H, Lymphocytes % (Manual) 5 L, Monocytes % (Manual) 2, Platelet Estimate Normal, RBC Morphology Normal, ESR 18 12/24/22 06:20: PT 15.1 H, INR 1.43 H 12/24/22 06:20: Sodium 128 L, Potassium 4.4, Chloride 98, Carbon Dioxide 22, Anion Gap 12.4, BUN 46 H D, Creatinine 1.30 H, Estimated Creat Clear 82, Estimated GFR 55 L, Est GFR ( Amer) 66, Glucose 260 H, Calcium 7.7 L, Total Bilirubin 1.6 H, AST 51, ALT 27, Alkaline Phosphatase 193 H, C-Reactive Protein 361.8 H, NT-Pro-B Natriuret Pep 2250 H, Total Protein 5.6 L, Albumin 2.5 L, Globulin 3.1, Albumin/Globulin Ratio 0.8 L, Procalcitonin 4.95 H 12/24/22 06:20: Ammonia < 9 L I & O for Labs for Last 24 Hours: Intake & Output 12/21/22 12/22/22 12/23/22 12/24/22 23:59 23:59 23:59 23:59 Intake Total 240 / 240 960 / 960 2190 / 2190 450 / 450 Output Total 1945 / 2245 1900 / 1900 600 / 600 Balance 240 / 40 -985 / -1285 290 / 290 -150 / -150 Weight 235 lb 6 oz 233 lb 11.04 oz 233 lb 3.2 oz 233 lb 10 oz Microbiology Reports for the Last 24 Hours: Microbiology 12/22/22 09:00 Blood Blood Culture - Preliminary Gram Positive Cocci 12/22/22 09:00 Blood Blood Culture - Preliminary Gram Positive Cocci 12/21/22 10:53 Blood Blood Culture - Final Staphylococcus aureus 12/21/22 10:53 Blood Blood Culture - Final Staphylococcus aureus 12/23/22 17:44 Shoulder,Right Gram Stain - Final Head: Present normocephalic and atraumatic Eyes: Present as per HPI ENT: Present normal exam Neck: Present normal inspection, full ROM and trachea midline; Absent lymphadenopathy Respiratory: Present normal respiratory effort, able to speak in complete sentences and symmetric chest movement; Absent accessory muscle use Cardiac: Present Reg Rate and Rhythm GI: Present soft; Absent tenderness Comment:: Right upper extremity: Dressings present over the right shoulder are clean, dry, and intact. No evidence of drainage or bleeding noted. Radial pulse 2+; Distal neurovascular status grossly intact. Skin: Present intact, warm and normal turgor; Absent cyanosis, erythema, lesions or jaundice Neuro: Present Cranial Nerve 2-12 Intact, Motor Function Intact, Sensory Function Intact, alert, awake, oriented x 3, tone normal and moves all extremities; Absent Numbness or Tingling
--- NOTE | 2022-12-24 09:52 | EXP.CARD.PN ---
Subjective Subjective Date: 12/24/22 Time: 09:00 Principal diagnosis: shoulder pain, diastolic dysfunction Interval history: This is a 67-year-old gentleman who presented to the emergency department with right shoulder/arm pain, redness and edema that started approximately 2 weeks ago. The patient was found to have septic arthritis and an abscess. He did undergo surgical intervention with orthopedics yesterday where he had a right acromioclavicular arthrotomy, right glenohumeral arthrotomy and incision and drainage of an abscess. The patient tolerated the procedure well. This morning he states that his right arm and shoulder pain is better than it has been but still persistent. He states the edema is much improved and he is feeling much better. He denies any chest pain or shortness of breath. He denies any lower extremity edema. He denies any fever, chills, nausea, vomiting, diarrhea, PND or orthopnea. Exam Data for Last 24 hours Vital signs and Labs for Last 24 Hours: Temp Pulse Resp BP Pulse Ox 97.6 F 68 17 129/59 L 92 L 12/24/22 07:18 12/24/22 07:18 12/24/22 07:18 12/24/22 07:18 12/24/22 07:18 Laboratory Results - last 24 hr 12/23/22 10:30: Vancomycin Trough 17.4 H 12/23/22 11:03: POC Glucose 164 H 12/23/22 15:28: Vancomycin Peak 34.3 12/23/22 16:30: POC Glucose 177 H 12/23/22 21:15: POC Glucose 213 H 12/24/22 00:41: POC Glucose 215 H 12/24/22 05:24: POC Glucose 342 H* 12/24/22 06:20: WBC 20.1 H*, RBC 4.73, Hgb 13.6 L, Hct 44.9, MCV 94.9 H, MCH 28.7, MCHC 30.3 L, RDW 13.1, Plt Count 202, MPV 11.2 H, Neut % (Auto) 94.5 H, Lymph % (Auto) 3.1 L, [place] % (Auto) 1.9, Eos % (Auto) 0.1, Baso % (Auto) 0.4, Neut # (Auto) 19.0 H, Lymph # (Auto) 0.6 L, [place] # (Auto) 0.4, Eos # (Auto) 0.0, Baso # (Auto) 0.1, Total Counted 100, Neutrophils % (Manual) 93 H, Lymphocytes % (Manual) 5 L, Monocytes % (Manual) 2, Platelet Estimate Normal, RBC Morphology Normal, ESR 18 12/24/22 06:20: PT 15.1 H, INR 1.43 H 12/24/22 06:20: Sodium 128 L, Potassium 4.4, Chloride 98, Carbon Dioxide 22, Anion Gap 12.4, BUN 46 H D, Creatinine 1.30 H, Estimated Creat Clear 82, Estimated GFR 55 L, Est GFR ( Amer) 66, Glucose 260 H, Calcium 7.7 L, Total Bilirubin 1.6 H, AST 51, ALT 27, Alkaline Phosphatase 193 H, C-Reactive Protein 361.8 H, NT-Pro-B Natriuret Pep 2250 H, Total Protein 5.6 L, Albumin 2.5 L, Globulin 3.1, Albumin/Globulin Ratio 0.8 L, Procalcitonin 4.95 H 12/24/22 06:20: Ammonia < 9 L I & O for Last 24 hours: Intake & Output 12/21/22 12/22/22 12/23/22 12/24/22 23:59 23:59 23:59 23:59 Intake Total 240 / 240 960 / 960 2190 / 2190 450 / 450 Output Total 1945 / 2245 1900 / 1900 600 / 600 Balance 240 / 40 -985 / -1285 290 / 290 -150 / -150 Weight 235 lb 6 oz 233 lb 11.04 oz 233 lb 3.2 oz 233 lb 10 oz Microbiology Reports for the Last 24 Hours: Microbiology 12/23/22 17:44 Shoulder,Right - Final Not Reportable 12/23/22 17:44 Shoulder,Right - Final Not Reportable 12/23/22 17:44 Shoulder,Right - Final Not Reportable 12/23/22 17:44 Shoulder,Right - Final Not Reportable 12/23/22 17:44 Shoulder,Right - Final Not Reportable 12/23/22 17:44 Shoulder,Right - Final Not Reportable 12/23/22 17:44 Shoulder,Right - Final Not Reportable 12/23/22 17:44 Shoulder,Right - Final Not Reportable 12/23/22 17:44 Shoulder,Right - Final Not Reportable 12/23/22 17:44 Shoulder,Right Gram Stain Comment - Final Not Reportable 12/23/22 17:44 Shoulder,Right Gram Stain - Final 12/22/22 09:00 Blood Blood Culture - Preliminary Gram Positive Cocci 12/22/22 09:00 Blood Blood Culture - Preliminary
[2022-12-24 10:29] LABS: Sodium, Urine <20 mmol/L (Not Estab.)
--- NOTE | 2022-12-24 10:32 | DIET.NUTRFU ---
Provider changed diet to regular, discontinued cardiac restrictions
--- NOTE | 2022-12-24 13:50 | SW/DCPLANNER ---
Addendum entered by [facility] 12/25/22 14:57: [facility] stated that patient can be accepted over the weekend if medically stable for discharge. Patient will not need a COVID swab prior to discharge. I have relayed this information to MD. Addendum entered by [facility] 12/25/22 10:39: I have updated Korina Pabon that patient is not ready for discharge today. Addendum entered by [facility] 12/25/22 08:50: This patient has been approved to discharge to [facility] today SNF level of care. I will update patient, nursing and Dr Murray. Addendum entered by [facility] 12/24/22 14:12: [facility] stated that she can accept this patient and will start precert today. Original Note: I spoke with this patient regarding plans once medically stable for discharge. Patient will need 7-14 days of IV antibiotics at time of discharge. PT/OT is also ordered to evaluated this patient today. I discussed with patient the different options to receive IV antibiotics: home w/ home health vs returning to [facility] outpatient clinic vs placement. Patient stated that he would not have daily transportation or assistance at home. Patient will be better served at SNF level of care at time of discharge. Patient is agreeable to placement at [facility] at this time. Patient information has been faxed to [facility]ina P[facility]. I will continue to follow up with facility, MD and patient. Patient's friend (Chaim) [phone]
--- NOTE | 2022-12-24 14:42 | P.PNANES_ITS ---
[facility] Anesthesia Record Part II Anesthesia Record Part II Discharge Time: 18:40 Destination: Medical Surgical Department PACU nurse assessment reviewed?: Yes Patient Condition:: Good Anesthesia Complications:: None Swallowing reflex intact?: Yes Cyanosis?: No Blood Pressure: 134/53 Pulse Rate: 72 Temperature: 97.4 F Mental Status: Alert & Oriented Pain level:: 0 Nausea and/or vomitting:: None Intake, IV Amount: 0
--- NOTE | 2022-12-24 14:50 | HMH.PTEV ---
Physical Therapy Evaluation Rehab PT IP Evaluation Start: 12/24/22 13:02 Freq: ONCE Status: Active Protocol: Document 12/24/22 14:45 PHORNE (Rec: 12/24/22 14:49 PHORNE [id number]) Subjective/History History History 67 yowm adm to [facility] with R UE cellulitis now S/P R SHLD I&D. He reports he lives alone, ramp to enter the home, and he is generally independent with all mobility without AD at baseline. Subjective Subjective He c/o pain in his R SHLD with mobility. Rehab PT IP Eval Objective Appearance Patient Behavior Appropriate Patient Orientation Person,Place,Time Difficulty following instructions none Speech Pattern Clear Ambulation Patient Able to Ambulate Yes Ambulation Observation IP General Gait Pattern Observation Wide Based Gait Ambulation Distance (feet) 20 Ambulation Assistive Device None Ambulation Ability Independent Balance Ability to Arise Able, uses arms to help Sitting Balance Steady, safe Standing Balance Steady, wide stance Dynamic Sitting Balance Ability Good Dynamic Standing Balance Ability Good Transfers Bed Transfer Ability Minimal x 1 (25% assist) Chair Transfer Ability Independent Sit to Stand Bed Transfer Ability Independent Sit to Stand Chair Transfer Ability Independent Pain Right Shoulder Pain Intensity 8 Rehab PT IP prob,goals,plan Problems Date of Evaluation: 12/24/22 PT IP Problems Bed Mobility,Transfers,Gait Rehab Potential Rehab Potential Good Plan PT Intervention Plan Bed Mobility,Transfers,Gait PT Plan Frequency Daily Duration LOS Discharge Goals Bed Transfer Ability Contact Guard/Hand Hold Sit to Stand Chair Transfer Ability Independent Ambulation Assistive Device None Ambulation Distance (feet) 40 Discharge Plan PT Discharge Plan Pt is currently most appropriate for rehab placement as he lives alone and has minimal use of his dominant UE at this time. G -code Required No Eval Complexity Eval Charge Codes 34888 - Moderate Complexity PHYSICIAN CERTIFICATION: I certify the specified therapy services for Ronald Arellano are required, authorized, and reviewed every 30 days.
[2022-12-24 17:13] LABS: POC Glucose,Bedside 246 (70-110)
[2022-12-24 17:13] LABS: POC Glucose,Bedside 274 (70-110)
--- NOTE | 2022-12-24 17:16 | EXP.PN ---
Subjective *Date: 12/24/22 *Time: 17:16 Interval history: Date of service December 24, 2022 The patient reports adequate pain control. He is inquiring about something to eat. Nursing staff report that he remains afebrile with stable vital signs and saturating appropriately on supplemental oxygen 2 L via nasal cannula. He is postop day 1 from his right shoulder procedure. We have reviewed and discussed his morning labs and I have personally interpreted his labs as follows: CBC with a downward trend white blood cell count 20,000, hemoglobin stable 13.6, hematocrit 45, platelet count 202. His INR is 1.43, sodium is 128, potassium 4.4, BUN 46 and creatinine 1.3 (baseline 1.1). His glucose is elevated this morning. Exam Data for Last 24 hours Vital signs and Labs for Last 24 Hours: Temp Pulse Resp BP Pulse Ox 97.4 F L 70 17 134/53 L 91 L 12/24/22 14:43 12/24/22 16:00 12/24/22 14:34 12/24/22 14:43 12/24/22 14:34 Laboratory Results - last 24 hr 12/22/22 14:30: Urine Sodium <20 12/23/22 15:28: Vancomycin Peak 34.3 12/23/22 16:30: POC Glucose 177 H 12/23/22 21:15: POC Glucose 213 H 12/24/22 00:41: POC Glucose 215 H 12/24/22 05:24: POC Glucose 342 H* 12/24/22 06:20: WBC 20.1 H*, RBC 4.73, Hgb 13.6 L, Hct 44.9, MCV 94.9 H, MCH 28.7, MCHC 30.3 L, RDW 13.1, Plt Count 202, MPV 11.2 H, Neut % (Auto) 94.5 H, Lymph % (Auto) 3.1 L, [place] % (Auto) 1.9, Eos % (Auto) 0.1, Baso % (Auto) 0.4, Neut # (Auto) 19.0 H, Lymph # (Auto) 0.6 L, [place] # (Auto) 0.4, Eos # (Auto) 0.0, Baso # (Auto) 0.1, Total Counted 100, Neutrophils % (Manual) 93 H, Lymphocytes % (Manual) 5 L, Monocytes % (Manual) 2, Platelet Estimate Normal, RBC Morphology Normal, ESR 18 12/24/22 06:20: PT 15.1 H, INR 1.43 H 12/24/22 06:20: Sodium 128 L, Potassium 4.4, Chloride 98, Carbon Dioxide 22, Anion Gap 12.4, BUN 46 H D, Creatinine 1.30 H, Estimated Creat Clear 82, Estimated GFR 55 L, Est GFR ( Amer) 66, Glucose 260 H, Calcium 7.7 L, Total Bilirubin 1.6 H, AST 51, ALT 27, Alkaline Phosphatase 193 H, C-Reactive Protein 361.8 H, NT-Pro-B Natriuret Pep 2250 H, Total Protein 5.6 L, Albumin 2.5 L, Globulin 3.1, Albumin/Globulin Ratio 0.8 L, Procalcitonin 4.95 H 12/24/22 06:20: Ammonia < 9 L 12/24/22 11:40: POC Glucose 246 H 12/24/22 16:55: POC Glucose 274 H I & O for Last 24 hours: Intake & Output 12/21/22 12/22/22 12/23/22 12/24/22 23:59 23:59 23:59 23:59 Intake Total 240 / 240 960 / 960 2190 / 2190 570 / 570 Output Total 1945 / 2245 1900 / 1900 600 / 600 Balance 240 / 40 -985 / -1285 290 / 290 -30 / -30 Weight 106.764 kg 106 kg 105.778 kg 105.971 kg Microbiology Reports for the Last 24 Hours: Microbiology 12/23/22 06:15 Blood Blood Culture - Preliminary 12/23/22 06:30 Blood Blood Culture - Preliminary 12/23/22 17:44 Shoulder,Right - Final Not Reportable 12/23/22 17:44 Shoulder,Right - Final Not Reportable 12/23/22 17:44 Shoulder,Right - Final Not Reportable 12/23/22 17:44 Shoulder,Right - Final Not Reportable 12/23/22 17:44 Shoulder,Right - Final Not Reportable 12/23/22 17:44 Shoulder,Right - Final Not Reportable 12/23/22 17:44 Shoulder,Right - Final Not Reportable 12/23/22 17:44 Shoulder,Right - Final Not Reportable 12/23/22 17:44 Shoulder,Right - Final Not Reportable 12/23/22 17:44 Shoulder,Right Gram Stain Comment - Final Not Reportable 12/23/22 17:44 Shoulder,Right Gram Stain - Final 12/22/22 09:00 Blood Blood Culture - Preliminary Gram Positive Cocci 12/22/22 09:00 Blood Blood Culture - Preliminary Gram Positive Cocci 12/21/22 10:53 Blood Blood Culture - Final
--- NOTE | 2022-12-24 18:32 | PC.NURSE ---
VS remains stable, patient remains on 2LNC while receiving dilaudid pain medication as sats drop to 88% on room air while sleeping. Pain noted from right shoulder and right side abdomen. No distention noted. Dilaudid and percocet given for pain. IV antibiotics given.
[2022-12-24 20:56] LABS: POC Glucose,Bedside 256 (70-110)
[2022-12-25] VITALS (7 sets, daily range): BP systolic 97–154; BP diastolic 45–92; PULSE 60–72; RESP 17–22; TEMP 36.4–36.9; O2SAT 90–94; BMI 31.7
--- NOTE | 2022-12-25 02:58 | PC.NURSE ---
PATIENT IS TO RECEIVE PICC LINE PLACEMENT THIS AM. REQUESTS DILAUDID FREQUENTLY FOR RIGHT SHOULDER PAIN 03/03. VITAL SIGNS STABLE/AFEBRILE. 02 SAT 93% ON 2LNC. TELEMETRY READINGS SR/BBB.
--- NOTE | 2022-12-25 03:48 | PC.NURSE ---
PATIENT JUST RECEIVED DILAUDID 0.5 MG IVP AT 0249 FOR PAIN 5/10. REQUESTING MORE DILAUDID. ACCUSED ME OF NOT GIVING HIM HIS DILAUDID. CALLED [facility] AND NOTIFIED HER OF PATIENTS COMPLAINT AND ACCUSATION. (GANTRY RIGGER Candace Murphy WAS PRESENT WHEN PATIENT RECEIVED HIS RECENT DILAUDID I WAS HAVING DIFFICULTY WITH THE COMPUTER IN HIS ROOM). NEXT DILAUDID IS DUE AT 0449 AND NEXT NORCO WILL BE DUE AT 0630.
[2022-12-25 05:15] LABS: POC Glucose,Bedside 200 (70-110)
--- NOTE | 2022-12-25 06:00 | XR_ITS ---
FINAL REPORT CLINICAL HISTORY: Confirm PICC line placement COMPARISON: none FINDINGS: A portable view of the chest is obtained. Left PICC line is present with the tip in the SVC. Cardiac and mediastinal silhouettes are normal. Lung volumes are low. There is bibasilar opacity which could be atelectasis or pneumonia. No pneumothorax. IMPRESSION: Left PICC line with tip in the SVC. Bibasilar opacity could be atelectasis or pneumonia. Reviewed, Interpreted and Dictated by Tawana Heard MD Transcribed by Kylah Wright Authenticated and [facility]
[2022-12-25 07:01] LABS: Basophils # 0.1 K/mm3 (0-0.2); Basophils % 0.2 % (0.1-2.0); Eosinophils # 0.3 K/mm3 (0.0-0.4); Eosinophils % 1.1 % (0.1-12.0); Hematocrit 45.2 % (42.0-52.0); Hemoglobin 14.1 g/dL (14.1-18.0); Lymphocytes # 0.8 K/mm3 (0.7-4.5); Lymphocytes % 3.2 % (10-50); Mean Corpuscular HGB Conc 31.3 g/dL (31.8-35.4); Mean Corpuscular Hemoglobin 28.9 pg (27.0-31.2); Mean Corpuscular Volume 92.1 fl (80-94); Mean Platelet Volume 10.6 fl (7.4-10.4); Monocytes # 0.8 K/mm3 (0.1-1.0); Neutrophils # 24.3 K/mm3 (1.8-7.8); Neutrophils % 92.5 % (37.0-80.0); Platelet Count 277 K/mm3 (142-424); Red Cell Distribution Width 13.4 % (11.5-17.5); White Blood Count 26.3 K/mm3 (4.8-10.8)
[2022-12-25 07:04] LABS: MANUAL DIFFERENTIAL MANUAL DIFFERENTIAL (MANUAL DIFF)
[2022-12-25 07:13] LABS: Alanine Aminotransferase 32 U/L (12-78); Albumin Level 2.7 g/dl (3.5-5.0); Albumin/Globulin Ratio 0.8 (1.1-1.8); Alkaline Phosphatase 199 U/L (38-126); Anion Gap 11.3 mEq/L (5-15); Aspartate Amino Transferase 58 U/L (17-59); Bilirubin,Total 1.6 mg/dl (0.2-1.3); Blood Urea Nitrogen 64 mg/dl (9-20); Carbon Dioxide 23 mmol/L (22.0-30.0); Chloride 97 mmol/L (98-107); Creatinine Clearance Estimated 66 mL/min (50-200); Estimated Glomerular Filt Rate 43 ml/min (>60); GFR (African American) 52 ML/MIN (>60); Globulin 3.5 g/dL (1.3-3.2); Glucose 234 mg/dl (74-100); Potassium 4.3 mmoL/L (3.5-5.1); Sodium 127 mmol/L (136-145); Total Protein,Serum 6.2 g/dl (6.3-8.2)
[2022-12-25 07:28] LABS: Procalcitonin 5.71 ng/mL (0.0-2.0)
[2022-12-25 07:49] LABS: Lymphocytes % 6 % (10-50); Monocytes % 6 % (2-9); Neutrophils % 88 % (42-76); Total Cells Counted 100
[2022-12-25 07:50] LABS: Platelet Estimate Normal; RBC Morphology Normal
--- NOTE | 2022-12-25 09:07 | EXP.PHA.PN ---
Subjective *Date: 12/25/22 *Time: 09:07 Medical Exam Vital signs and Labs for Last 24 Hours: Vital Signs Temp Pulse Pulse Resp BP BP Pulse Ox 12/25/22 08:00 98.2 F 63 20 154/67 H 12/25/22 03:59 98.0 F 72 18 97/45 L 94 L 12/24/22 20:00 93 L 12/25/22 00:30 60 12/24/22 23:57 98.4 F 64 16 121/53 L 93 L 12/24/22 20:00 94 L 12/24/22 20:02 68 12/24/22 19:21 98.2 F 67 16 118/56 L 94 L 12/24/22 16:00 70 12/24/22 12:01 60 12/24/22 14:34 97.7 F 63 17 95/46 L 91 L 12/24/22 11:10 97.7 F 65 18 136/77 90 L 12/24/22 14:43 97.4 F L 72 134/53 L Intake and Output 12/24/22 12/25/22 12/25/22 23:59 07:59 15:59 Intake Total 690 / 1260 450 / 450 Output Total 1050 / 1650 600 / 600 Balance -360 / -390 -150 / -150 Intake: Intake, Oral Amount 240 / 360 Intake, Total IV Amount 450 / 900 450 / 450 Cefepime HCl 2 gm In 0.9 % 100 / 200 100 / 100 Sodium Chloride 100 ml @ 200 mls/hr IV Q8H MILLIE Rx#:[id number] Vancomycin/Water For Inj (Peg) 350 / 700 350 / 350 1.75 gm In 350 ml @ 175 mls/hr IV Q12H MILLIE Rx#:[id number] Output: Output, Urine Amount 1050 / 1650 600 / 600 Other: Weight 106.254 kg Patient Weight 12/25/22 23:59 Weight 106.254 kg Laboratory Results - last 24 hr 12/22/22 14:30: Urine Sodium <20 12/24/22 11:40: POC Glucose 246 H 12/24/22 16:55: POC Glucose 274 H 12/24/22 20:49: POC Glucose 256 H 12/25/22 05:06: POC Glucose 200 H 12/25/22 06:40: WBC 26.3 H* D, RBC 4.90, Hgb 14.1, Hct 45.2, MCV 92.1, MCH 28.9, MCHC 31.3 L, RDW 13.4, Plt Count 277 D, MPV 10.6 H, Neut % (Auto) 92.5 H, Lymph % (Auto) 3.2 L, [place] % (Auto) 3.0, Eos % (Auto) 1.1, Baso % (Auto) 0.2, Neut # (Auto) 24.3 H, Lymph # (Auto) 0.8, [place] # (Auto) 0.8, Eos # (Auto) 0.3, Baso # (Auto) 0.1, Total Counted 100, Neutrophils % (Manual) 88 H, Lymphocytes % (Manual) 6 L, Monocytes % (Manual) 6, Platelet Estimate Normal, RBC Morphology Normal 12/25/22 06:40: Sodium 127 L, Potassium 4.3, Chloride 97 L, Carbon Dioxide 23, Anion Gap 11.3, BUN 64 H D, Creatinine 1.60 H D, Estimated Creat Clear 66, Estimated GFR 43 L, Est GFR ( Amer) 52 L D, Glucose 234 H, Calcium 8.0 L, Total Bilirubin 1.6 H, AST 58, ALT 32, Alkaline Phosphatase 199 H, Total Protein 6.2 L, Albumin 2.7 L, Globulin 3.5 H, Albumin/Globulin Ratio 0.8 L, Procalcitonin 5.71 H I & O for Labs for Last 24 Hours: Intake & Output 12/22/22 12/23/22 12/24/22 12/25/22 23:59 23:59 23:59 23:59 Intake Total 960 / 960 2190 / 2190 1260 / 1260 450 / 450 Output Total 1945 / 2245 1900 / 1900 1650 / 1650 600 / 600 Balance -985 / -1285 290 / 290 -390 / -390 -150 / -150 Weight 106 kg 105.778 kg 105.971 kg 106.254 kg Microbiology Reports for the Last 24 Hours: Microbiology 12/23/22 06:30 Blood Blood Culture - Preliminary Gram Positive Cocci 12/23/22 06:15 Blood Blood Culture - Preliminary Gram Positive Cocci 12/23/22 17:44 Shoulder,Right Gram Stain - Final 12/23/22 17:44 Shoulder,Right Wound Culture - Preliminary Gram Positive Cocci 12/22/22 09:00 Blood Blood Culture - Final Staphylococcus aureus 12/22/22 09:00 Blood Blood Culture - Final Staphylococcus aureus 12/23/22 17:44 Shoulder,Right - Final Not Reportable 12/23/22 17:44 Shoulder,Right - Final Not Reportable 12/23/22 17:44 Shoulder,Right - Final Not Reportable 12/23/22 17:44 Shoulder,Right - Final Not Reportable 12/23/22 17:44 Shoulder,Right - Final Not Reportable 12/23/22 17:44 Shoulder,Right - Final Not Reportable 12/23/22 17:44 Shoulder,Right - Amanda
--- NOTE | 2022-12-25 09:08 | EXP.ORTH.PN ---
Subjective *Date: 12/25/22 *Time: 08:45 Interval history: Patient is a 67-year-old male admitted to the acute inpatient service with a 2-week history of right shoulder and arm erythema, pain. He underwent right shoulder acromioclavicular arthrotomy, glenohumeral arthrotomy, and incision and drainage of abscess on 12/23/[address] Flynn. Today the patient is postop day #2. This morning he is lying comfortably in bed. He reports right shoulder pain but states it is well controlled with as needed pain medication and rest. No history of any distal tingling/numbness. He denies any other symptoms or concerns at this time. Ortho Exam (Inpt) Vital signs and Labs for Last 24 Hours: Temp Pulse Resp BP Pulse Ox 98.2 F 63 20 154/67 H 94 L 12/25/22 08:00 12/25/22 08:00 12/25/22 08:00 12/25/22 08:00 12/25/22 03:59 Laboratory Results - last 24 hr 12/22/22 14:30: Urine Sodium <20 12/24/22 11:40: POC Glucose 246 H 12/24/22 16:55: POC Glucose 274 H 12/24/22 20:49: POC Glucose 256 H 12/25/22 05:06: POC Glucose 200 H 12/25/22 06:40: WBC 26.3 H* D, RBC 4.90, Hgb 14.1, Hct 45.2, MCV 92.1, MCH 28.9, MCHC 31.3 L, RDW 13.4, Plt Count 277 D, MPV 10.6 H, Neut % (Auto) 92.5 H, Lymph % (Auto) 3.2 L, [place] % (Auto) 3.0, Eos % (Auto) 1.1, Baso % (Auto) 0.2, Neut # (Auto) 24.3 H, Lymph # (Auto) 0.8, [place] # (Auto) 0.8, Eos # (Auto) 0.3, Baso # (Auto) 0.1, Total Counted 100, Neutrophils % (Manual) 88 H, Lymphocytes % (Manual) 6 L, Monocytes % (Manual) 6, Platelet Estimate Normal, RBC Morphology Normal 12/25/22 06:40: Sodium 127 L, Potassium 4.3, Chloride 97 L, Carbon Dioxide 23, Anion Gap 11.3, BUN 64 H D, Creatinine 1.60 H D, Estimated Creat Clear 66, Estimated GFR 43 L, Est GFR ( Amer) 52 L D, Glucose 234 H, Calcium 8.0 L, Total Bilirubin 1.6 H, AST 58, ALT 32, Alkaline Phosphatase 199 H, Total Protein 6.2 L, Albumin 2.7 L, Globulin 3.5 H, Albumin/Globulin Ratio 0.8 L, Procalcitonin 5.71 H I & O for Labs for Last 24 Hours: Intake & Output 12/22/22 12/23/22 12/24/22 12/25/22 23:59 23:59 23:59 23:59 Intake Total 960 / 960 2190 / 2190 1260 / 1260 450 / 450 Output Total 1945 / 2245 1900 / 1900 1650 / 1650 600 / 600 Balance -985 / -1285 290 / 290 -390 / -390 -150 / -150 Weight 233 lb 11.04 oz 233 lb 3.2 oz 233 lb 10 oz 234 lb 4 oz Microbiology Reports for the Last 24 Hours: Microbiology 12/23/22 06:30 Blood Blood Culture - Preliminary Gram Positive Cocci 12/23/22 06:15 Blood Blood Culture - Preliminary Gram Positive Cocci 12/23/22 17:44 Shoulder,Right Gram Stain - Final 12/23/22 17:44 Shoulder,Right Wound Culture - Preliminary Gram Positive Cocci 12/22/22 09:00 Blood Blood Culture - Final Staphylococcus aureus 12/22/22 09:00 Blood Blood Culture - Final Staphylococcus aureus 12/23/22 17:44 Shoulder,Right - Final Not Reportable 12/23/22 17:44 Shoulder,Right - Final Not Reportable 12/23/22 17:44 Shoulder,Right - Final Not Reportable 12/23/22 17:44 Shoulder,Right - Final Not Reportable 12/23/22 17:44 Shoulder,Right - Final Not Reportable 12/23/22 17:44 Shoulder,Right - Final Not Reportable 12/23/22 17:44 Shoulder,Right - Final Not Reportable 12/23/22 17:44 Shoulder,Right - Final Not Reportable 12/23/22 17:44 Shoulder,Right - Final Not Reportable 12/23/22 17:44 Shoulder,Right Gram Stain Comment - Final Not Reportable 12/21/22 10:53 Blood Blood Culture - Final Staphylococcus aureus 12/21/22 10:53 Blood Blood Cultu
[2022-12-25 11:00] LABS: Vancomycin,Trough 33.2 ug/mL (5.0-10.0)
[2022-12-25 11:18] LABS: POC Glucose,Bedside 170 (70-110)
--- NOTE | 2022-12-25 11:23 | HMH.OTEV ---
OT Inpatient Evaluation Rehab OT IP Evaluation Start: 12/24/22 13:02 Freq: ONCE Status: Active Protocol: Document 12/25/22 10:55 [email or web address] (Rec: 12/25/22 11:23 KASSI [id number]) Rehab OT IP Assessment Subjective History s/p: Right acromioclavicular arthroton Right glenohumeral arthrotomy Incision and drainage of abscess 67-year-old male with 2-week history of right shoulder pain . He had elevated inflammatory markers, is on Eliquis. His Eliquis was held 2 days. MRI demonstrated glenohumeral, acromioclavicular effusion, large abscess in the subdeltoid region. I had a discussion with him regarding further management, recommended right acromioclavicular, glenohumeral arthrotomy, debridement irrigation of abscess. He was amenable with the plan. We discussed the risk and benefits of surgery. Risks included but were not limited to pain, bleeding, infection, damage to adjacent structures, need for further surgery, wound healing complications, loss of limb, . Patient expressed verbal consent and written consent was obtained for the above procedure. Patient lives alone in a congregation with 2-3 HERI. Independent with ADLs and fx'l mobility prior to hospitalization. Subjective I am in alot of pain right now. I need pain medicine. Patient recently recieved a PICC line prior to OT evaluation and on continous IV and was sitting upright in chair. 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
[2022-12-25 11:38] LABS: Vancomycin,Random 40.6 ug/ml
--- NOTE | 2022-12-25 12:04 | EXP.PHA.CONS ---
Pharmacy Consult Date: 12/25/22 Time: 12:04 Referring provider: DR. MALCOLM Reason for Consult:: VANCOMCYIN DOSING Allergies Allergy/AdvReac Type Severity Reaction Status Date / Time buspirone [From BuSpar] Allergy Verified 12/21/22 11:12 Home Medications Medication Instructions Recorded Confirmed Type apixaban 5 mg tablet (Eliquis) 5 mg PO BID Blood thinner/atrial 12/21/22 12/21/22 History fib atorvastatin 80 mg tablet 80 mg PO DAILY Cholesterol 12/21/22 12/21/22 History clopidogrel 75 mg tablet 75 mg PO DAILY platelet inhibitor 12/21/22 12/21/22 History duloxetine 30 mg capsule,delayed 60 mg PO DAILY Depression 12/21/22 12/21/22 History release empagliflozin 25 mg tablet 25 mg PO DAILY Diabetes 12/21/22 12/21/22 History (Jardiance) fluticasone propionate 50 1 spray intranasal DAILY allergies 12/21/22 12/21/22 History mcg/actuation nasal spray,suspension glipizide 10 mg tablet, extended 10 mg PO DAILY Diabetes 12/21/22 12/21/22 History release 24 hr metformin 1,000 mg tablet 1,000 mg PO BID Diabetes 12/21/22 12/21/22 History metoprolol tartrate 25 mg tablet 25 mg PO BID High blood pressure 12/21/22 12/22/22 History pantoprazole 40 mg tablet,delayed 40 mg PO DAILY acid reflux 12/21/22 12/21/22 History release New Prescriptions to Start Prescriptions: Height: 1.83 m Weight: 106.254 kg Laboratory Results:: Laboratory Results - last 24 hr 12/24/22 11:40: POC Glucose 246 H 12/24/22 16:55: POC Glucose 274 H 12/24/22 20:49: POC Glucose 256 H 12/25/22 05:06: POC Glucose 200 H 12/25/22 06:00: Random Vancomycin 40.6 12/25/22 06:40: WBC 26.3 H* D, RBC 4.90, Hgb 14.1, Hct 45.2, MCV 92.1, MCH 28.9, MCHC 31.3 L, RDW 13.4, Plt Count 277 D, MPV 10.6 H, Neut % (Auto) 92.5 H, Lymph % (Auto) 3.2 L, [place] % (Auto) 3.0, Eos % (Auto) 1.1, Baso % (Auto) 0.2, Neut # (Auto) 24.3 H, Lymph # (Auto) 0.8, [place] # (Auto) 0.8, Eos # (Auto) 0.3, Baso # (Auto) 0.1, Total Counted 100, Neutrophils % (Manual) 88 H, Lymphocytes % (Manual) 6 L, Monocytes % (Manual) 6, Platelet Estimate Normal, RBC Morphology Normal 12/25/22 06:40: Sodium 127 L, Potassium 4.3, Chloride 97 L, Carbon Dioxide 23, Anion Gap 11.3, BUN 64 H D, Creatinine 1.60 H D, Estimated Creat Clear 66, Estimated GFR 43 L, Est GFR ( Amer) 52 L D, Glucose 234 H, Calcium 8.0 L, Total Bilirubin 1.6 H, AST 58, ALT 32, Alkaline Phosphatase 199 H, Total Protein 6.2 L, Albumin 2.7 L, Globulin 3.5 H, Albumin/Globulin Ratio 0.8 L, Procalcitonin 5.71 H 12/25/22 09:55: Vancomycin Trough 33.2 H 12/25/22 11:09: POC Glucose 170 H Medical History: Medical History (Updated 12/23/22 @ 10:03 by Kami Hogue APRN) Atrial fibrillation Chronic anticoagulation Coronary artery disease Diabetes Edema Elevated liver enzymes Essential hypertension Hyperlipidemia Nephritic syndrome Assessment and Plan Assessment and plan all Dx Assessment and Plan for all problems:: VANCOMYCIN LEVELS WERE 40.6 MCG/ML AT 0600 WITH AM LABS. LEVEL WAS 33.2 MCG/ML THIS AM AT 0955 AFTER 50 ML OF VANOCMYCIN 1750 MG/350 ML WAS INFUSED. RECOMMEND HOLDING VANCOMYCIN DOSE UNTIL 2100 TONIGHT, THEN RESTARTING WITH VANCOMYCIN 1750 MG Q18H.
--- NOTE | 2022-12-25 13:15 | EXP.PN ---
Subjective *Date: 12/25/22 *Time: 13:28 Interval history: Date of service December 25, 2022 The patient reports no acute events overnight. Nursing staff report that he remains afebrile with stable vital signs and saturating appropriately on 2 L of oxygen. PT and OT have evaluated the patient. They are recommending transition to skilled rehab. Case management is assisting with transition of care and facility identification. His morning labs have been reviewed and discussed. His laboratory studies have been personally interpreted as follows: Stable sodium 127, potassium 4.3, chloride 97, CO2 23, BUN 64, creatinine 1.6. Downward trending AST and ALT with a total bilirubin 1.6. Ongoing leukocytosis with a white blood cell count 26,000, stable hemoglobin 14, hematocrit 45 and platelets 277. His glucose trend is under 270. His chest x-ray is consistent with pulmonary edema and a procalcitonin is 5.7. Exam Data for Last 24 hours Vital signs and Labs for Last 24 Hours: Temp Pulse Resp BP Pulse Ox 98.4 F 66 20 140/92 H 91 L 12/25/22 11:30 12/25/22 11:30 12/25/22 11:30 12/25/22 11:30 12/25/22 11:30 Laboratory Results - last 24 hr 12/24/22 11:40: POC Glucose 246 H 12/24/22 16:55: POC Glucose 274 H 12/24/22 20:49: POC Glucose 256 H 12/25/22 05:06: POC Glucose 200 H 12/25/22 06:00: Random Vancomycin 40.6 12/25/22 06:40: WBC 26.3 H* D, RBC 4.90, Hgb 14.1, Hct 45.2, MCV 92.1, MCH 28.9, MCHC 31.3 L, RDW 13.4, Plt Count 277 D, MPV 10.6 H, Neut % (Auto) 92.5 H, Lymph % (Auto) 3.2 L, [place] % (Auto) 3.0, Eos % (Auto) 1.1, Baso % (Auto) 0.2, Neut # (Auto) 24.3 H, Lymph # (Auto) 0.8, [place] # (Auto) 0.8, Eos # (Auto) 0.3, Baso # (Auto) 0.1, Total Counted 100, Neutrophils % (Manual) 88 H, Lymphocytes % (Manual) 6 L, Monocytes % (Manual) 6, Platelet Estimate Normal, RBC Morphology Normal 12/25/22 06:40: Sodium 127 L, Potassium 4.3, Chloride 97 L, Carbon Dioxide 23, Anion Gap 11.3, BUN 64 H D, Creatinine 1.60 H D, Estimated Creat Clear 66, Estimated GFR 43 L, Est GFR ( Amer) 52 L D, Glucose 234 H, Calcium 8.0 L, Total Bilirubin 1.6 H, AST 58, ALT 32, Alkaline Phosphatase 199 H, Total Protein 6.2 L, Albumin 2.7 L, Globulin 3.5 H, Albumin/Globulin Ratio 0.8 L, Procalcitonin 5.71 H 12/25/22 09:55: Vancomycin Trough 33.2 H 12/25/22 11:09: POC Glucose 170 H I & O for Last 24 hours: Intake & Output 12/22/22 12/23/22 12/24/22 12/25/22 23:59 23:59 23:59 23:59 Intake Total 960 / 960 2190 / 2190 1260 / 1260 930 / 930 Output Total 1945 / 2245 1900 / 1900 1650 / 1650 900 / 900 Balance -985 / -1285 290 / 290 -390 / -390 30 / 30 Weight 106 kg 105.778 kg 105.971 kg 106.254 kg Microbiology Reports for the Last 24 Hours: Microbiology 12/23/22 06:30 Blood Blood Culture - Preliminary Gram Positive Cocci 12/23/22 06:15 Blood Blood Culture - Preliminary Gram Positive Cocci 12/23/22 17:44 Shoulder,Right Gram Stain - Final 12/23/22 17:44 Shoulder,Right Wound Culture - Preliminary Gram Positive Cocci 12/22/22 09:00 Blood Blood Culture - Final Staphylococcus aureus 12/22/22 09:00 Blood Blood Culture - Final Staphylococcus aureus 12/23/22 17:44 Shoulder,Right - Final Not Reportable 12/23/22 17:44 Shoulder,Right - Final Not Reportable 12/23/22 17:44 Shoulder,Right - Final Not Reportable 12/23/22 17:44 Shoulder,Right - Final Not Reportable 12/23/22 17:44 Shoulder,Right - Final Not Reportable 12/23/22 17:44 Shoulder,Right - Final Not Reportable 12/23/22 17:44 Shoulder,Right - Final Not Reportable 12/23/22 17:44 Shoulder,Right - Final N
[2022-12-25 15:52] LABS: POC Glucose,Bedside 171 (70-110)
--- NOTE | 2022-12-25 18:59 | PC.NURSE ---
PT IS RESTING IN BED. ALERT AND ORIENTED X4. MEDICATED PER MAR FOR DISCOMFORT.DRESSING TO THE RIGHT SHOULDER CHANGED THIS SHIFT. USING URINAL TO VOID. WILL CONTINUE TO MONITOR.
[2022-12-25 21:09] LABS: POC Glucose,Bedside 172 (70-110)
[2022-12-26] VITALS (7 sets, daily range): BP systolic 124–177; BP diastolic 55–88; PULSE 60–72; RESP 16–20; TEMP 36.5–37; O2SAT 90–93; BMI 32.1
--- NOTE | 2022-12-26 03:49 | PC.NURSE ---
Pt has complained of right shoulder pain multiple times this shift. Has been medicated PRN per DEC. Pt has had no other complaints. Uses urinal independently, urine clear/dark yellow. Pt remains on 3L NC and tolerating well. Dressing to right shoulder c/d/i.
[2022-12-26 06:26] LABS: POC Glucose,Bedside 149 (70-110)
--- NOTE | 2022-12-26 06:26 | PC.NURSE ---
Pts dressing to right shoulder noted to have moderate amount of blood. Dressing changed at this time.
[2022-12-26 08:08] LABS: Basophils % 0.2 % (0.1-2.0); Eosinophils # 0.2 K/mm3 (0.0-0.4); Eosinophils % 0.9 % (0.1-12.0); Hematocrit 43.4 % (42.0-52.0); Hemoglobin 13.6 g/dL (14.1-18.0); Lymphocytes # 0.9 K/mm3 (0.7-4.5); Lymphocytes % 3.8 % (10-50); Mean Corpuscular HGB Conc 31.3 g/dL (31.8-35.4); Mean Corpuscular Hemoglobin 28.4 pg (27.0-31.2); Mean Corpuscular Volume 90.8 fl (80-94); Mean Platelet Volume 11.2 fl (7.4-10.4); Monocytes # 0.7 K/mm3 (0.1-1.0); Neutrophils # 21.3 K/mm3 (1.8-7.8); Neutrophils % 92.2 % (37.0-80.0); Platelet Count 277 K/mm3 (142-424); Red Blood Count 4.79 M/mm3 (4.60-6.20); Red Cell Distribution Width 13.6 % (11.5-17.5); White Blood Count 23.1 K/mm3 (4.8-10.8)
[2022-12-26 08:25] LABS: MANUAL DIFFERENTIAL MANUAL DIFFERENTIAL (MANUAL DIFF)
[2022-12-26 08:27] LABS: Alanine Aminotransferase 52 U/L (12-78); Albumin Level 2.5 g/dl (3.5-5.0); Albumin/Globulin Ratio 0.7 (1.1-1.8); Alkaline Phosphatase 209 U/L (38-126); Anion Gap 8.5 mEq/L (5-15); Aspartate Amino Transferase 97 U/L (17-59); Blood Urea Nitrogen 71 mg/dl (9-20); Calcium 7.9 mg/dl (8.4-10.2); Carbon Dioxide 27 mmol/L (22.0-30.0); Chloride 99 mmol/L (98-107); Creatinine Clearance Estimated 77 mL/min (50-200); Estimated Glomerular Filt Rate 50 ml/min (>60); GFR (African American) 61 ML/MIN (>60); Globulin 3.6 g/dL (1.3-3.2); Glucose 166 mg/dl (74-100); Potassium 4.5 mmoL/L (3.5-5.1); Sodium 130 mmol/L (136-145); Total Protein,Serum 6.1 g/dl (6.3-8.2)
[2022-12-26 08:36] LABS: NT Pro Brain Natriuretic Pep. 1670 pg/mL (0-125)
[2022-12-26 08:44] LABS: Procalcitonin 6.35 ng/mL (0.0-2.0)
--- NOTE | 2022-12-26 09:52 | EXP.PN ---
Subjective *Date: 12/26/22 *Time: 09:52 Interval history: Date of service December 26, 2022 The patient reports no acute events overnight. He reports improved pain control. He is tolerating his IV antibiotic therapy with no adverse events. Nursing staff report that he remains afebrile with stable vital signs and saturating appropriately on supplemental oxygen via nasal cannula. We have reviewed and discussed his morning labs and I have personally interpreted his laboratory studies as follows: CBC with a downward trend leukocytoses white blood cell count 23, hemoglobin stable 13.6, hematocrit 43, platelet count 277. His BNP is downward trending, procalcitonin is elevated, glucose trend under 250, MRSA is pending, electrolytes identify sodium 130, potassium 4.5, BUN 71 and creatinine that has improved to 1.4 with a baseline of 1.1. His intraoperative cultures are negative. Exam Data for Last 24 hours Vital signs and Labs for Last 24 Hours: Temp Pulse Resp BP Pulse Ox 98.2 F 72 20 136/88 92 L 12/26/22 08:00 12/26/22 08:00 12/26/22 08:00 12/26/22 08:00 12/26/22 08:00 Laboratory Results - last 24 hr 12/25/22 06:00: Random Vancomycin 40.6 12/25/22 09:55: Vancomycin Trough 33.2 H 12/25/22 11:09: POC Glucose 170 H 12/25/22 15:29: POC Glucose 171 H 12/25/22 20:54: POC Glucose 172 H 12/26/22 06:08: POC Glucose 149 H 12/26/22 07:50: WBC 23.1 H*, RBC 4.79, Hgb 13.6 L, Hct 43.4, MCV 90.8, MCH 28.4, MCHC 31.3 L, RDW 13.6, Plt Count 277, MPV 11.2 H, Neut % (Auto) 92.2 H, Lymph % (Auto) 3.8 L, [place] % (Auto) 3.0, Eos % (Auto) 0.9, Baso % (Auto) 0.2, Neut # (Auto) 21.3 H, Lymph # (Auto) 0.9, [place] # (Auto) 0.7, Eos # (Auto) 0.2, Baso # (Auto) 0.0 12/26/22 07:50: Sodium 130 L, Potassium 4.5, Chloride 99, Carbon Dioxide 27, Anion Gap 8.5, BUN 71 H, Creatinine 1.40 H, Estimated Creat Clear 77, Estimated GFR 50 L, Est GFR ( Amer) 61, Glucose 166 H, Calcium 7.9 L, Total Bilirubin 2.0 H, AST 97 H D, ALT 52 D, Alkaline Phosphatase 209 H, NT-Pro-B Natriuret Pep 1670 H, Total Protein 6.1 L, Albumin 2.5 L, Globulin 3.6 H, Albumin/Globulin Ratio 0.7 L, Procalcitonin 6.35 H I & O for Last 24 hours: Intake & Output 12/23/22 12/24/22 12/25/22 12/26/22 23:59 23:59 23:59 23:59 Intake Total 2190 / 2190 1260 / 1260 1050 / 1050 240 / 240 Output Total 1900 / 1900 1650 / 1650 1550 / 1925 1175 / 1175 Balance 290 / 290 -390 / -390 -500 / -875 -935 / -935 Weight 105.778 kg 105.971 kg 106.254 kg 107.757 kg Microbiology Reports for the Last 24 Hours: Microbiology 12/23/22 17:44 Shoulder,Right Gram Stain - Final 12/23/22 17:44 Shoulder,Right Wound Culture - Final Staphylococcus aureus 12/23/22 06:30 Blood Blood Culture - Final Staphylococcus aureus 12/23/22 06:15 Blood Blood Culture - Final Staphylococcus aureus 12/22/22 09:00 Blood Blood Culture - Final Staphylococcus aureus 12/22/22 09:00 Blood Blood Culture - Final Staphylococcus aureus Constitutional Constitutional: no acute distress, obese and cooperative *Routine HEENT Exam Head: Present normocephalic Eye: Present EOMI and PERRL ENT: Present mucous membranes moist *Routine Neck Exam Neck: Present supple and full ROM; Absent JVD or lymphadenopathy *Routine Respiratory Exam Respiratory: Present CTA bilaterally, normal respiratory effort and symmetric chest movement *Routine Cardiovascular Exam Cardiovascular: Present RRR; Absent murmur *Routine Abdominal Exam Abdominal: Present soft and normoactive bowel sounds; Absent tenderness or organomegaly *Routine Extremities Exam Extremities: Absent cyanosis, clubbing or edema Comments: Right upper extremity surgical dressing *Routine Skin Exam Skin: Present warm; Absent rash or ecchymosis *Routine Neurological Exam Neurological: Present alert, oriented X3, moving all extremities
[2022-12-26 10:19] LABS: Lymphocytes % 13 % (10-50); Monocytes % 3 % (2-9); Neutrophils % 84 % (42-76); Platelet Estimate Normal; RBC Morphology Normal; Total Cells Counted 100
[2022-12-26 11:35] LABS: POC Glucose,Bedside 215 (70-110)
[2022-12-26 16:41] LABS: POC Glucose,Bedside 152 (70-110)
--- NOTE | 2022-12-26 17:01 | PC.NURSE ---
pt is inappropriate at times. asking nursing to take pictures of medications in cups. MD notified of pt being inappropriate. encouraged pt independence with adls. Dressing to R shoulder changed. pt medicated for pain prior to dressing.
--- NOTE | 2022-12-26 18:09 | PC.NURSE ---
patient refused to help self in daily activities and bathing. Patient was assisted to bathe. Patient also refuses to eat at meal times. Anjana Gomez SRNA
--- NOTE | 2022-12-26 19:08 | INFXCTL.NOTE ---
pt refusing to wear his o2
[2022-12-26 20:08] LABS: POC Glucose,Bedside 161 (70-110)
[2022-12-26 23:17] LABS: Hep A Ab, IgM NEGATIVE; Hepatitis B Surface Antigen NEGATIVE
[2022-12-26 23:18] LABS: Hepatitis B Core Antibody IgM NEGATIVE; Hepatitis C Antibody NON REACTIVE
[2022-12-27] VITALS: BP 160/52; PULSE 60; PULSE 66; RESP 18; TEMP 36.6; O2SAT 92
--- NOTE | 2022-12-27 03:56 | PC.NURSE ---
Pt has complained of right shoulder pain one time so far this shift, was medicated per mar. Has had no other complaints this shift. Pt unwilling to complete simple tasks. Dressing to right shoulder c/d/i. Voids per urinal.
[2022-12-27 04:00] VITALS: BP 159/60; PULSE 62; PULSE 70; RESP 18; TEMP 36.9; O2SAT 93; BMI 31.2
[2022-12-27 05:48] LABS: Basophils % 0.2 % (0.1-2.0); Eosinophils # 0.2 K/mm3 (0.0-0.4); Eosinophils % 1.2 % (0.1-12.0); Hemoglobin 12.6 g/dL (14.1-18.0); Lymphocytes # 0.8 K/mm3 (0.7-4.5); Lymphocytes % 4.4 % (10-50); Mean Corpuscular HGB Conc 31.5 g/dL (31.8-35.4); Mean Corpuscular Hemoglobin 28.4 pg (27.0-31.2); Mean Corpuscular Volume 90.2 fl (80-94); Mean Platelet Volume 10.9 fl (7.4-10.4); Monocytes # 0.5 K/mm3 (0.1-1.0); Monocytes % 2.9 % (1.7-9.3); Neutrophils # 16.8 K/mm3 (1.8-7.8); Neutrophils % 91.3 % (37.0-80.0); Platelet Count 229 K/mm3 (142-424); Red Blood Count 4.43 M/mm3 (4.60-6.20); Red Cell Distribution Width 13.7 % (11.5-17.5); White Blood Count 18.4 K/mm3 (4.8-10.8)
[2022-12-27 05:53] LABS: Chloride 102 mmol/L (98-107); Potassium 4.2 mmoL/L (3.5-5.1); Sodium 133 mmol/L (136-145)
[2022-12-27 05:56] LABS: Anion Gap 8.2 mEq/L (5-15); Blood Urea Nitrogen 65 mg/dl (9-20); Carbon Dioxide 27 mmol/L (22.0-30.0); Creatinine Clearance Estimated 95 mL/min (50-200); Estimated Glomerular Filt Rate 67 ml/min (>60); GFR (African American) 81 ML/MIN (>60); MANUAL DIFFERENTIAL MANUAL DIFFERENTIAL (MANUAL DIFF)
[2022-12-27 05:57] LABS: Calcium 7.6 mg/dl (8.4-10.2); Glucose 149 mg/dl (74-100)
[2022-12-27 06:44] LABS: POC Glucose,Bedside 134 (70-110)
[2022-12-27 08:00] VITALS: BP 103/53; PULSE 67; PULSE 88; RESP 18; TEMP 36.9; O2SAT 97
[2022-12-27 09:48] LABS: Lymphocytes % 5 % (10-50); Monocytes % 2 % (2-9); Neutrophils % 93 % (42-76); Platelet Estimate Normal; RBC Morphology Normal; Total Cells Counted 100
[2022-12-27 10:00] VITALS: BP 127/57; BP 147/59; PULSE 69; PULSE 72; RESP 14; O2SAT 92; O2SAT 97
--- NOTE | 2022-12-27 10:29 | EXP.DC.SUM ---
General Admission date:: 12/21/22 Discharge date: 12/27/22 HPI HPI HPI: 67-year-old gentleman with 2-week history of right shoulder and arm redness and pain. States his right shoulder is where the pain began approximately 2 weeks ago. He was at a friend's house in [place] and woke up with pain. Denies any trauma or injury. Pain is gradually progressed and includes swelling of his right arm. Significant edema (3+) in right upper extremity and hand. Pain was bad enough that he went to see since he Ortho last week on the . They told him (per his friends in the room) that he either had an infection or gout. They gave him a steroid shot and sent him home. His symptoms have only gotten worse with pain. He has not slept well due to the pain. Is dozing in and out on exam at this time. Denies any chest pain, shortness of breath, nausea, vomiting, fever or chills. He does complain of being quite fatigued and just wanting to sleep. Friends in the room supplement history and state that he has gotten worse over the past several days and has not wanted to do much, has had swelling in his legs as previously not there, and has become very weak and tired. They brought him to the ER at the recommendation of his PCP. On arrival to the ER, concern for right upper extremity cellulitis or infection. Initiated work-up with CBC and CMP. Patient's BUN is elevated at 31 with normal creatinine 1.1. He additionally has elevated white cell count of 20,000. X-ray of the humerus shows no fracture or injury. Duplex of upper extremity showing no DVT. Medicine consulted for admission and further management. Hospital Course Hospital Course Hospital Course: The patient was admitted to the medical unit with blood cultures acquired and broad-spectrum IV antibiotic coverage started. Orthopedics and cardiology were consulted. His laboratory studies and inflammatory markers were trended. Imaging of his right shoulder including MRI were completed. Orthopedic surgery took him to the OR on December 23, 2022. His initial set of blood cultures identified Staph aureus. Subsequent blood cultures identified Staph aureus as well. Laboratory studies were concerning for chronic cirrhosis but imaging of the liver identified no nodular changes. He was maintained on ACC guided therapy for his coronary artery disease, paroxysmal atrial fibrillation and heart failure with preserved ejection fraction. With IV vancomycin for MRSA coverage his creatinine trended upward. Upon discontinuation of IV vancomycin his creatinine returned to baseline 1.1. His CBC identified and improved leukocytoses. The patient interacted with PT and OT and they recommended transition to [facility]. His oxygen requirements diminished and he saturated appropriately on room air. Staphylococcus aureus bacteremia Initial blood cultures (12/21) with Staph aureus with aguirre sensitivity in both sets Repeat blood cultures (12/22) MSSA pansensitive Repeat blood cultures (12/23) MSSA pansensitive Discharge blood cultures (12/27) with results pending MRSA screen pending on discharge MRI right shoulder identified myositis and cellulitis Orthopedic consult reviewed IV cefepime 2 g every 8 hours for 7 days on discharge and further recommendations pending discharge blood cultures Trending labs and inflammatory markers Septic arthritis of right shoulder MRI right shoulder reviewed Orthopedic following IV cefepime 2 g every 8 hours Trending labs and inflammatory markers Pain control Right shoulder OR intervention (12/23) Intraoperative wound cultures negative Postoperative PT/OT consults Ambulating patient Case management assisting with next site of care Acute kidney injury Baseline creatinine 1.1 Resolved Greater than 0.3 increased from baseline in 24 hours Trending electrolytes and creatinine DC vancomycin?blood culture sensitivities reviewed Avoiding NSAIDs Paroxysmal atrial fibrillation ED ECG sinus rhythm
[2022-12-27 12:03] LABS: POC Glucose,Bedside 164 (70-110)
== END 2022-12-27 12:22 | DRG 507 ==
LOC: ER 14:42 → 2ND 15:49
PROVIDERS: Family Medicine; Nurse Practitioner Family; Orthopaedic Surgery; Admitting Provider Internal Medicine Adolescent Medicine; Emergency Provider Emergency Medicine; Visit Provider Internal Medicine Adolescent Medicine
PROC: 0R9J0ZZ Drainage of Right Shoulder Joint, Open Approach (ICD-10-PCS; principal; 2022-12-23 18:00)
DX: M00.9 Pyogenic arthritis, unspecified (principal); E87.1 Hypo-osmolality and hyponatremia; I48.20 Chronic atrial fibrillation, unspecified; I50.32 Chronic diastolic (congestive) heart failure; L03.113 Cellulitis of right upper limb; R78.81 Bacteremia; Z79.01 Long term (current) use of anticoagulants; I25.10 Atherosclerotic heart disease of native coronary artery without angina pectoris; Z95.5 Presence of coronary angioplasty implant and graft; E78.5 Hyperlipidemia, unspecified; B95.61 Methicillin susceptible Staphylococcus aureus infection as the cause of diseases classified elsewhere; Z79.84 Long term (current) use of oral hypoglycemic drugs; E88.09 Other disorders of plasma-protein metabolism, not elsewhere classified; E11.65 Type 2 diabetes mellitus with hyperglycemia; I48.0 Paroxysmal atrial fibrillation
CPT/HCPCS: 23044; 23040; 36569; 36410; 36415; 70200; 71045; 73060; 73223; 74018; 76705; 80048; 80053; 80061; 80074; 80202; 82043; 82140; 82570; 82803; 82962; 83036; 83605; 83735; 83880; 84145; 84155; 84300; 84484; 84550; 85007; 85025; 85610; 85651; 86140; 87040; 87070; 87075; 87077; 87081; 87186; 87205; 93005; 93306; 93971; 94618; 94761; 97162; 97165; 97530; 99285; A9576; C1751; C9803; J0692; J2405; J3370; U0003; U0005